=== PATIENT | female | born 1940 | race Caucasian/White ===

== ENCOUNTER → 2016-08-30 | Outpatient (CLI) | payer BC, MEDICARE ==
--- OUTSIDE RECORDS SUMMARY | 2016-08-30 13:16 | XMS REPORT | Continuity of Care Document ---
Author Author [facility] Organization [facility] Address Unknown Phone Unavailable Allergies Active Description Code Type Severity Reaction Onset Reported/Identified Relationship to Patient Clinical Status Yes NKANo Known Allergies NKA Miscellaneous Allergy Unknown N/ A 07/29/2005 Medications Problems Date Dx Coded Attending Type Code Diagnosis Diagnosed By 09/19/2014 Ot 715.96 09/19/2014 Ot V10.43 09/19/2014 Ot V58.69 09/19/2014 Ot V67.2 09/19/2014 Ot V88.01 08/24/2015 Ot 715.96 08/24/2015 Ot V10.43 08/24/2015 Ot V58.69 08/24/2015 Ot V67.2 08/24/2015 Ot V88.01 09/01/2015 Ot 230.6 09/01/2015 Ot V10.43 09/01/2015 Ot V45.77 09/01/2015 Ot V58.69 09/01/2015 Ot V67.2 09/01/2015 Ot 230.6 09/01/2015 Ot V10.43 09/01/2015 Ot V45.77 09/01/2015 Ot V58.69 09/01/2015 Ot V67.2 09/01/2015 Ot 553.20 09/01/2015 Ot V10.43 09/01/2015 Ot V45.77 09/01/2015 Ot V58.69 09/01/2015 Ot V67.2 09/01/2015 MARIANN POLK N Ot 715.96 09/01/2015 MARIANN POLK N Ot V10.43 09/01/2015 MARIANN POLK N Ot V58.69 09/01/2015 MARIANN POLK N Ot V67.2 09/01/2015 MARIANN POLK N Ot V88.01 09/01/2015 Ot 715.96 09/01/2015 Ot V10.43 09/01/2015 Ot V58.69 09/01/2015 Ot V67.2 09/01/2015 Ot V88.01 09/02/2015 MARIANN POLK N Ot Z08 09/02/2015 MARIANN POLK N Ot Z85.43 09/02/2015 MARIANN POLK N Ot Z90.710 09/02/2015 MARIANN POLK N Ot Z92.21 09/14/2015 FELICITASMARIANN LEE N Ot Z08 09/14/2015 FELICITASMARIANN LEE N Ot Z85.43 09/14/2015 FELIICTASMARIANN LEE N Ot Z90.710 09/14/2015 FELICITASMARIANN LEE N Ot Z92.21 10/01/2015 RHIANNA VALDES [employer] Ot Z08 10/01/2015 RHIANNA VALDES [employer] O[employer] Ot Z85.43 10/01/2015 RHIANNA VALDES [employer] Ot Z90.710 10/01/2015 RHIANNA VALDES [employer] Ot Z92.21 10/12/2015 RHIANNA VALDESP Ot Z08 ENCNTR FOR FOLLOW-UP EXAM AFTER TRTMT FO 10/12/2015 RHIANNA VALDES [employer] Ot Z85.43 PERSONAL HISTORY OF MALIGNANT NEOPLASM O 10/12/2015 RHIANNA VALDES [employer] Ot Z90.710 ACQUIRED ABSENCE OF BOTH CERVIX AND UTER 10/12/2015 RHIANNA VALDES [employer] Ot Z92.21 PERSONAL HISTORY OF ANTINEOPLASTIC CHEMO Procedures Results Encounters ACCT No. Visit Date/Time Discharge Status Pt. Type Provider Facility Loc./Unit Complaint [id number] 09/02/2013 09:20:00 2013 23:59:59 CLS Outpatient MARIANN POLK [facility] FS [id number] 08/30/2016 15:06:00 PEN Preadmit MARIANN POLK N [facility] FS [id number] 09/30/2015 12:38:00 ACT Outpatient RHIANNA VALDESP [facility] ONC [id number] 09/01/2015 09:40:00 ACT Outpatient MARIANN POLK N [facility] FS [id number] 08/26/2014 10:25:00 Document Registration [id number] 08/28/2012 12:44:00 Document Registration [id number] 08/30/2011 13:12:00 Document Registration [id number] 08/31/2010 10:39:00 Document Registration
== END ==
LOC: FS 13:11
PROVIDERS: ATTEND Internal Medicine Hematology & Oncology
DX: Z08 Encounter for follow-up examination after completed treatment for malignant neoplasm (principal); Z85.43 Personal history of malignant neoplasm of ovary; Z90.710 Acquired absence of both cervix and uterus; Z92.21 Personal history of antineoplastic chemotherapy
CPT/HCPCS: 99213

== ENCOUNTER → 2017-08-29 | Outpatient (CLI) | payer BC, MEDICARE ==
[2017-08-29 14:03] LABS: BASOPHILS % (AUTO) 0 % (0-10); EOSINOPHILS # (AUTO) 0.2 10^3/uL (0.0-0.3); EOSINOPHILS % (AUTO) 3 % (0-10); HEMATOCRIT 41 % (35-52); HEMOGLOBIN 13.7 G/DL (11.5-16.0); LYMPHOCYTES # (AUTO) 2.2 X 10^3 (1.0-4.0); LYMPHOCYTES % (AUTO) 29 % (12-44); MEAN CORPUSCULAR HEMOGLOBIN 31 PG (25-34); MEAN CORPUSCULAR HGB CONC 34 G/DL (32-36); MEAN CORPUSCULAR VOLUME 93 FL (80-99); MEAN PLATELET VOLUME 9.7 FL (7.4-10.4); MONOCYTES % (AUTO) 13 % (0-12); NEUTROPHILS # (AUTO) 4.1 X 10^3 (1.8-7.8); NEUTROPHILS % (AUTO) 54 % (42-75); PLATELET COUNT 259 10^3/uL (130-400); RED BLOOD COUNT 4.37 10^6/uL (4.35-5.85); RED CELL DISTRIBUTION WIDTH 13.2 % (10.0-14.5); WHITE BLOOD COUNT 7.6 10^3/uL (4.3-11.0)
[2017-08-29 14:29] LABS: ALANINE AMINOTRANSFERASE 26 U/L (0-55); ALBUMIN 4.1 GM/DL (3.2-4.5); ALKALINE PHOSPHATASE 78 U/L (40-136); BILIRUBIN,TOTAL 0.7 MG/DL (0.1-1.0); BUN/CREATININE RATIO 25; CALCIUM 9.2 MG/DL (8.5-10.1); CARBON DIOXIDE 30 MMOL/L (21-32); CHLORIDE 104 MMOL/L (98-107); CREATININE SERUM 0.67 MG/DL (0.60-1.30); GFR ESTIMATED > 60; GLUCOSE 102 MG/DL (70-105); SODIUM 140 MMOL/L (135-145); TOTAL PROTEIN 6.8 GM/DL (6.4-8.2)
== END ==
LOC: ONC 13:34
PROVIDERS: ATTEND Internal Medicine Hematology & Oncology
DX: Z08 Encounter for follow-up examination after completed treatment for malignant neoplasm (principal); Z85.43 Personal history of malignant neoplasm of ovary; Z85.828 Personal history of other malignant neoplasm of skin; Z90.710 Acquired absence of both cervix and uterus; Z92.21 Personal history of antineoplastic chemotherapy
CPT/HCPCS: 36415; 80053; 85025; 86304; 99213

== ENCOUNTER → 2020-10-14 | Outpatient (CLI) | payer BC, MEDICARE ==
[~2020-10-14] VITALS: Ht 165 cm; Wt 87.0 kg
[~2020-10-14] MED LIST: REGADENOSON 0.4 MG/5 ML SYR (LEXISCAN) IV ONE
[2020-10-14] MEDS: CATHETER FLUSH 10 ML SYR IV PRN ×2 (07:18→08:52)
[2020-10-14 08:51] VITALS: BP 113/84
--- NOTE | 2020-10-14 14:20 | Cardiology Stress Test Report ---
Stress Test Report Date of Procedure/Referring: Date of Procedure: Oct 14, 2020 PCP Juan Jose Mondragon MD Admitting Physician Ryan Stockton DO Indications: CP Baseline Heart Rate: 74 Baseline Blood Pressure: Blood Pressure Systolic: 113 Blood Pressure Diastolic: 84 Baseline Vitals Vital Signs Date Time Temp Pulse Resp B/P (MAP) Pulse Ox O2 Delivery O2 Flow Rate FiO2 10/14/20 08:51 82 16 113/84 (94) 98 Room Air Baseline EKG: Baseline EKG: Atrial fibrillation Summary After explaining the procedure to the patient, she signed a consent and then brought to the stress nuclear laboratory. Patient received 0.4 mg Lexiscan for stress test, ECG, heart rate and blood pressure were monitored continuously. Resting and stress dose of radio tracer were injected, imaging was acquired and reviewed in short axis, horizontal long axis and vertical long axis views. TID: 1.08 SSS: 0 SDS: 0 EF: 74 1. Patient tolerated Lexiscan well 2. Baseline atrial fibrillation persisted during test 3. Breast attenuation with decreased uptake involving the anterior wall with subtle reversibility, most probably secondary to breast attenuation, no significant ischemia was noted 4. Normal left ventricular size, EF 74%, gated images are unreliable due to underlying atrial fibrillation JUAN JOSE MONDRAGON MD Oct 14, 2020 14:20
== END ==
LOC: CARD 07:30
PROVIDERS: ATTEND Internal Medicine Cardiovascular Disease
DX: I08.0 Rheumatic disorders of both mitral and aortic valves (principal); I25.10 Atherosclerotic heart disease of native coronary artery without angina pectoris; I10 Essential (primary) hypertension
CPT/HCPCS: 78452; 93017; 93306

== ENCOUNTER → 2020-11-02 | Outpatient (CLI) | payer MEDICARE ==
[~2020-11-02] MED LIST changes: +AMIO200T6 PO; +APIX5TAB PO; +FURO40TA4 PO; +MTP25TSR PO; +MULT-178 PO; +POTA10TA36 PO; -REGADENOSON 0.4 MG/5 ML SYR (LEXISCAN) IV ONE; +SIMV10TA26 PO; +TIMO5DRO5 OU; +UBID100C17 PO; +VERA120T10 PO
== END ==
LOC: LAB FS 08:35
PROVIDERS: ATTEND Internal Medicine Cardiovascular Disease
DX: Z20.822 Contact with and (suspected) exposure to COVID-19 (principal)
CPT/HCPCS: 87635

== ENCOUNTER 2020-11-04 11:30 | Day surgery (SDC) | payer MEDICARE ==
[~2020-11-04] VITALS: Ht 165.1 cm; Wt 91.0 kg
[2020-11-04] VITALS (13 sets, daily range): BP systolic 96–116; BP diastolic 65–86
[2020-11-04 10:41] LABS: HEMATOCRIT 35 % (35-52); HEMOGLOBIN 11.3 g/dL (11.5-16.0); MEAN CORPUSCULAR HEMOGLOBIN 32 pg (25-34); MEAN CORPUSCULAR HGB CONC 32 g/dL (32-36); MEAN CORPUSCULAR VOLUME 99 fL (80-99); MEAN PLATELET VOLUME 9.5 fL (9.0-12.2); PLATELET COUNT 265 10^3/uL (130-400); WHITE BLOOD COUNT 6.7 10^3/uL (4.3-11.0)
--- NOTE | 2020-11-04 10:48 | Diagnostic Imaging Report ---
INDICATION: Arrhythmia. Portable chest at 10:41 a.m. Heart is mildly enlarged. Pulmonary vascularity is normal. Lungs are clear. There are no effusions or pneumothoraces. IMPRESSION: Cardiomegaly without evidence of pulmonary venous hypertension. Dictated by: Dictated on workstation # [id number]
[2020-11-04 11:02] LABS: INR 1.4 (0.8-1.4); PROTHROMBIN TIME PATIENT 17.1 SEC (12.2-14.7)
[2020-11-04 11:13] LABS: ALBUMIN 3.7 GM/DL (3.2-4.5); BILIRUBIN,TOTAL 0.6 MG/DL (0.1-1.0); CALCIUM 8.4 MG/DL (8.5-10.1); CREATININE SERUM 1.11 MG/DL (0.60-1.30); POTASSIUM 3.9 MMOL/L (3.6-5.0); TOTAL PROTEIN 6.3 GM/DL (6.4-8.2)
[~2020-11-04 11:30] MED LIST changes: -AMIO200T6 PO; +LIDOCAINE 2% VISCOUS 15 ML UDC ONE; +LIDOCAINE 2% VISCOUS 15 ML UDC PO ONE; +MIDAZOLAM 2 MG/2 ML (VERSED) VIAL ONE; +NS IV 1000 ML 1,000 ML IV SCH; +NS IV 1000 ML 1,000 ML ONE; +proPOfol 200 MG/20 ML (DIPRIVAN) VIAL IV ONE
--- NOTE | 2020-11-04 11:46 | Conscious Sedation/ASA ---
Conscious Sedation Pre-Proced Time 11:46 ASA Score 3 For ASA 3 and 4: Consider anesthesia and medical clearance. Also, for patients with a history of failed moderate sedation consider anesthesia. Airway Lungs Heart ASA score ASA 1: a normal healthy patient ASA 2: a patient with a mild systemic disease (mid diabetes, controlled hypertension, obesity x ASA 3: a patient with a severe systemic disease that limits activity (angina, COPD, prior Myocardial infarction) ASA 4: a patient with an incapacitating disease that is a constant threat to life (CHF, renal failure) ASA 5: a moribund patient not expected to survive 24 hrs. (ruptured aneurysm) ASA 6: a declared brain- patient whose organs are being harvested. For emergent operations, add the letter E after the classification Mallampati Classification Grade 3 Sedation Plan Analgesia, Amnesia, Plan communicated to team members, Discussed options with patient/fam, Discussed risks with patient/fam The patient is an appropriate candidate to undergo the planned procedure, sedation, and anesthesia. The patient immediately re-assessed prior to indication. JUAN JOSE GIBSON MD November 04, 2020 11:46 am
--- NOTE | 2020-11-04 11:47 | Cardioversion ---
Cardioversion PROCEDURE PHYSICIAN: Juan Jose Mondragon DATE OF PROCEDURE: 11/04/20 DIRECT EXTERNAL ELECTRICAL CARDIOVERSION: Indications: Atrial Fibrillation with rapid ventricular rate Preoperative diagnoses: Atrial Fibrillation with rapid ventricular rate Postoperative diagnosis: Sinus rhythm, Successful Electrical Cardioversion Anesthesia: By Anesthesia services Complications: None Specimen: None Contrast: 0 Flouroscopy: none Procedure Details: The patient was brought the sleep lab technologist after informed consent was taken, all the risks and complications were explained including the risk of stroke. Electrical cardioversion was carried out with anesthesia support with propofol. 200 joules of synchronized shock was delivered through external patches which promptly restored sinus rhythm. The patient tolerated the procedure well. Conclusions: Successful electrical cardioversion with no complication Final Diagnosis: Paroxysmal atrial fibrillation Palpitation Hypertension Hyperlipidemia JUAN JOSE MONDRAGON MD November 04, 2020 11:47 am
[2020-11-04] MEDS ORDERED: AMIO200T6 PO (11:54)
--- NOTE | 2020-11-04 11:55 | Discharge Inst-Cardiology ---
Discharge Inst-Cardiac Problems Reviewed?: Yes Discharge Medications New Medications: Amiodarone HCl (Amiodarone HCl) 200 Mg Tablet 200 MG PO UD, #100 TAB Take 2 tablet twice daily for 2 weeks then Take 1 tablet twice daily Continued Medications: Apixaban (Eliquis) 5 Mg Tablet 5 MG PO BID, TAB Furosemide (Furosemide) 40 Mg Tablet 40 MG PO 0700,1300, TAB Metoprolol Succinate (Metoprolol Succinate) 25 Mg Tab.er.24h 25 MG PO DAILY, TAB Multivitamin (Multiple Vitamins) 1 Each Tablet 1 EACH PO DAILY, TAB Potassium Chloride (Potassium Chloride) 10 Meq Tab.er.prt 10 MEQ PO DAILY Simvastatin (Simvastatin) 10 Mg Tablet 10 MG PO DAILY, TAB Timolol Maleate (Timolol Maleate 0.5%) 5 Ml Drops 1 DROP OU BID, DROPS Ubidecarenone (Coq-10) 100 Mg Capsule 200 MG PO DAILY, CAP Verapamil HCl (Verapamil ER) 120 Mg Tablet.er 120 MG PO DAILY, TAB Patient Instructions Patient Instructions: Appointment with Dr. Mondragon's office in 2 to 4 weeks Activity & Diet Discharge Diet: No Restrictions JUAN JOSE MONDRAGON MD November 04, 2020 11:55 am
[2020-11-04] MEDS ORDERED: AMIODARONE INJECTION 450 MG in D5W IV SOLUTION (EXCEL) 250 ML IV SCH (12:00)
[2020-11-04] MEDS ORDERED: AMIODARONE FOR BOLUS 150 MG in D5W 100 ML IVPB 100 ML IV ONE ×4 (12:00)
[2020-11-04] MEDS ORDERED: FUROSEMIDE 40 MG (LASIX) TAB PO SCH (13:00)
--- NOTE | 2020-11-04 14:21 | Anesthesia-General Post-Op ---
MAC Patient Condition Mental Status/LOC: Same as Preop Cardiovascular: Satisfactory Nausea/Vomiting: Absent Respiratory: Satisfactory Pain: Controlled Complications: Absent Post Op Complications Complications None Follow Up Care/Instructions Patient Instructions None needed. Anesthesiology Discharge Order Discharge Order Patient is doing well, no complaints, stable vital signs, no apparent adverse anesthesia problems. No complications reported per nursing. KAMILLE BENJAMIN CRNA November 04, 2020 14:21
[2020-11-04] MEDS ORDERED: APIXABAN 5 MG (ELIQUIS) TABLET PO SCH (21:00)
[2020-11-04] MEDS ORDERED: TIMOLOL MALEATE 0.5% 5 ML (TIMOPTIC) BTL OU SCH (21:00)
[2020-11-05] MEDS ORDERED: NON-FORMULARY MEDICATION 1 EA EA (Potassium Chloride 10 MEQ) PO SCH (09:00)
[2020-11-05] MEDS ORDERED: UBIDECARENONE 200 MG PO SCH (09:00)
[2020-11-05] MEDS ORDERED: NON-FORMULARY MEDICATION 1 EA EA (Multivitamin (Multiple Vitamins) 1 EACH) PO SCH (09:00)
[2020-11-05] MEDS ORDERED: SIMvastatin 10 MG (ZOCOR) TAB PO SCH (09:00)
== END 2020-11-04 14:20 ==
LOC: CATH 14:20
PROVIDERS: ATTEND Internal Medicine Cardiovascular Disease
DX: I48.91 Unspecified atrial fibrillation (principal); I48.19 Other persistent atrial fibrillation; I10 Essential (primary) hypertension; I48.0 Paroxysmal atrial fibrillation; E78.5 Hyperlipidemia, unspecified; J45.909 Unspecified asthma, uncomplicated; Z79.899 Other long term (current) drug therapy; Z79.01 Long term (current) use of anticoagulants
CPT/HCPCS: 36415; 71045; 80053; 80061; 85027; 85610; 85730; 87081; 92960; 93005; 93312

== ENCOUNTER → 2021-05-04 | Outpatient (CLI) | payer MEDICARE ==
[~2021-05-04] MED LIST changes: +AMIO200T6 PO; -LIDOCAINE 2% VISCOUS 15 ML UDC ONE; -LIDOCAINE 2% VISCOUS 15 ML UDC PO ONE; -MIDAZOLAM 2 MG/2 ML (VERSED) VIAL ONE; -NS IV 1000 ML 1,000 ML IV SCH; -NS IV 1000 ML 1,000 ML ONE; -VERA120T10 PO; +VERA120T74 PO; -proPOfol 200 MG/20 ML (DIPRIVAN) VIAL IV ONE
--- NOTE | 2021-05-04 15:11 | Diagnostic Imaging Report ---
INDICATION: Postmenopausal screening COMPARISON: Baseline FINDINGS: AP Spine L1-L4: [BMD (g/cm2): 0.919] [T-Score: -2.3] [Z-Score: -1.2] [BMD Previous: NA] [BMD % Change: NA] LT Hip Neck: [BMD (g/cm2): 0.704] [T-Score: -2.4] [Z-Score: -0.6] LT Hip Total: [BMD (g/cm2):0.747] [T-Score:-2.1] [Z-Score: -0.5] [BMD Previous: NA] [BMD % Change: NA] RT Hip Neck: [BMD (g/cm2):0.704] [T-Score:-2.4] [Z-Score:-0.6] RT Hip Total: [BMD (g/cm2):0.776] [T-score:-1.8] [Z-Score:-0.3] [BMD Previous:NA] [BMD % Change:NA] *Indicates significant change from prior examination based on 95% confidence level. World Health Organization criteria for BMD interpretation classify patients as Normal (T-score at or above -1.0), Osteopenic (T-score between -1.0 and -2.5) or Osteoporotic (T-score at or below -2.5). LIMITATIONS AND MODIFICATION: None. FRACTURE RISK (FRAX SCORE): The ten year probability of (%): Major Osteoporotic Fracture: [17.2] Hip Fracture: [5.8] IMPRESSION: 1. Osteopenia (Low bone mass). 2. Baseline examination. 3. See below National Osteoporosis Foundation guidelines on when to potentially initiate pharmacologic therapy. Based on the National Osteoporosis Foundation Guidelines, pharmacologic treatment should be initiated in any of the following, unless clinical conditions suggest otherwise: * Any patient with prior fragility fracture of the hip or vertebrae. A spine fracture indicates 5X risk for subsequent spine fracture and 2X risk for subsequent hip fracture. * Osteoporosis (T-score <-2.5). * Postmenopausal women and men age 50 and older with low bone mass/osteopenia (T-score between -1.0 and -2.5) by DXA and 10-year major osteoporotic fracture greater than 20% or a 10-year probability of hip fracture greater than 3%. These fracture risks are supplied above in the FRAX score, if applicable. * Clinician judgement and/or patient preferences may indicate treatment for people with 10-year fracture probabilities above or below these levels. Dictated by: Dictated on workstation # [id number]
== END ==
LOC: RAD 12:14
PROVIDERS: ATTEND Hospitalist
DX: Z13.820 Encounter for screening for osteoporosis (principal); C50.812 Malignant neoplasm of overlapping sites of left female breast; M85.89 Other specified disorders of bone density and structure, multiple sites; Z79.811 Long term (current) use of aromatase inhibitors; Z78.0 Asymptomatic menopausal state
CPT/HCPCS: 77080

== ENCOUNTER 2021-05-19 16:06 | Observation (INO) | payer MEDICARE, OTHER ==
[~2021-05-19] VITALS: Ht 160 cm; Wt 89.7 kg
[~2021-05-19 16:06] MED LIST changes: -AMIO200T6 PO; +AMIO200T65 PO; -POTA10TA36 PO; +POTA10TA37 PO
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
[2021-05-19 16:39] LABS: BASOPHILS % (AUTO) 0 % (0-10); EOSINOPHILS % (AUTO) 2 % (0-10); HEMATOCRIT 41 % (35-52); HEMOGLOBIN 13.4 g/dL (11.5-16.0); LYMPHOCYTES % (AUTO) 21 % (12-44); MEAN CORPUSCULAR HEMOGLOBIN 31 pg (25-34); MEAN CORPUSCULAR HGB CONC 33 g/dL (32-36); MEAN CORPUSCULAR VOLUME 94 fL (80-99); MONOCYTES % (AUTO) 10 % (0-12); NEUTROPHILS % (AUTO) 67 % (42-75); PLATELET COUNT 317 10^3/uL (130-400); WHITE BLOOD COUNT 7.8 10^3/uL (4.3-11.0)
[2021-05-19 16:40] LABS: EOSINOPHILS # (AUTO) 0.1 10^3/uL (0.0-0.3); LYMPHOCYTES # (AUTO) 1.6 X 10^3 (1.0-4.0); MONOCYTES # (AUTO) 0.8 X 10^3 (0.0-1.0); NEUTROPHILS # (AUTO) 5.2 X 10^3 (1.8-7.8)
[2021-05-19 17:10] LABS: PROTHROMBIN TIME PATIENT > 45.0 SEC (12.2-14.7)
[2021-05-19 17:11] LABS: CALCIUM 8.6 MG/DL (8.5-10.1); CREATININE SERUM 1.05 MG/DL (0.60-1.30); POTASSIUM 3.9 MMOL/L (3.6-5.0)
[2021-05-19] MEDS ORDERED: VITAMIN K 1 MG/ML ORAL SOLN 1 ML SYRINGE PO ONE (17:30)
[2021-05-19 19:56] VITALS: BP 122/83
[2021-05-19] MEDS: AMIODARONE 200 MG (CORDARONE) TAB PO SCH (21:57)
[2021-05-19 22:39] VITALS: BP 115/92
[2021-05-19] MEDS ORDERED: RT-ALBUTEROL SULF 2.5 MG/3 ML PRE-MIX VIAL INH PRN (23:00)
[2021-05-20] VITALS: BP 135/85
[2021-05-20] MEDS ORDERED: ACETAMINOPHEN 325 MG TABLET PO PRN (04:45)
[2021-05-20] MEDS ORDERED: PATIENT MAY USE OWN MEDS, ALL PO SCH (04:45)
[2021-05-20] MEDS ORDERED: MELATONIN 3 MG TABLET PO PRN (04:45)
[2021-05-20] MEDS ORDERED: ONDANSETRON 4 MG/2 ML (SDV) Z0FRAN IV PRN (04:45)
[2021-05-20] MEDS ORDERED: ONDANSETRON 4 MG (ZOFRAN) ORAL DISSOLVE TAB PO PRN (04:45)
[2021-05-20] MEDS ORDERED: polyethylene glycoL POWDER 17 GM (MIRALAX) PACK PO PRN (04:45)
[2021-05-20] MEDS ORDERED: ANTACID SUSP 30 ML UDC (MYLANTA) PO PRN (04:45)
[2021-05-20 04:53] VITALS: BP 128/80
[2021-05-20] MEDS: FUROSEMIDE 40 MG (LASIX) TAB PO SCH ×2 (06:56→12:48)
[2021-05-20 07:01] LABS: PROTHROMBIN TIME PATIENT 92.7 SEC (12.2-14.7)
[2021-05-20 07:02] LABS: INR 12.1 (0.8-1.4)
[2021-05-20 07:30] VITALS: BP 141/82
[2021-05-20] MEDS: AMIODARONE 200 MG (CORDARONE) TAB PO SCH ×2 (08:42→20:13)
[2021-05-20] MEDS: KCL 10 MEQ TAB (MICRO K) PO SCH (08:42)
[2021-05-20] MEDS: LOSARTAN 50 MG (COZAAR) TAB PO SCH (08:42)
[2021-05-20] MEDS: VERAPAMIL PM 100 MG (VERELAN PM) CAP.SR.24H PO SCH (08:42)
[2021-05-20] MEDS: TIMOLOL MALEATE 0.5% 5 ML (TIMOPTIC) BTL OU SCH ×2 (08:43→20:13)
[2021-05-20] MEDS ORDERED: AVALIDE PO SCH (09:00)
[2021-05-20] MEDS ORDERED: NON-FORMULARY MEDICATION 1 EA EA PO SCH (09:00)
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
[2021-05-20 12:04] VITALS: BP 98/65
[2021-05-20] MEDS ORDERED: ANAS1TAB50 PO ×2 (14:08)
[2021-05-20] MEDS ORDERED: VERA120C4 PO ×2 (14:08)
[2021-05-20] MEDS ORDERED: SIMV40TA25 PO ×2 (14:08)
[2021-05-20] MEDS ORDERED: AMIO200T50 PO ×2 (14:08)
[2021-05-20] MEDS ORDERED: WRF2.5T PO ×2 (14:08)
[2021-05-20 15:35] VITALS: BP 99/73
[2021-05-20 20:08] VITALS: BP 102/65
[2021-05-20] MEDS ORDERED: SIMvastatin 10 MG (ZOCOR) TAB PO SCH (21:00)
[2021-05-21] VITALS: BP 120/82
[2021-05-21 05:00] VITALS: BP 116/76
[2021-05-21 06:38] LABS: BASOPHILS % (AUTO) 0 % (0-10); EOSINOPHILS # (AUTO) 0.2 10^3/uL (0.0-0.3); EOSINOPHILS % (AUTO) 2 % (0-10); HEMATOCRIT 40 % (35-52); LYMPHOCYTES # (AUTO) 1.2 10^3/uL (1.0-4.0); LYMPHOCYTES % (AUTO) 18 % (12-44); MEAN CORPUSCULAR HEMOGLOBIN 31 pg (25-34); MEAN CORPUSCULAR HGB CONC 32 g/dL (32-36); MEAN CORPUSCULAR VOLUME 96 fL (80-99); MEAN PLATELET VOLUME 9.9 fL (9.0-12.2); MONOCYTES # (AUTO) 0.7 10^3/uL (0.0-1.0); MONOCYTES % (AUTO) 11 % (0-12); NEUTROPHILS # (AUTO) 4.6 10^3/uL (1.8-7.8); NEUTROPHILS % (AUTO) 68 % (42-75); PLATELET COUNT 261 10^3/uL (130-400); WHITE BLOOD COUNT 6.8 10^3/uL (4.3-11.0)
[2021-05-21] MEDS: FUROSEMIDE 40 MG (LASIX) TAB PO SCH (06:48)
[2021-05-21 07:11] LABS: INR 6.7 (0.8-1.4); PROTHROMBIN TIME PATIENT 58.7 SEC (12.2-14.7)
[2021-05-21 08:00] VITALS: BP 133/88
[2021-05-21] MEDS: AMIODARONE 200 MG (CORDARONE) TAB PO SCH (08:37)
[2021-05-21] MEDS: VERAPAMIL PM 100 MG (VERELAN PM) CAP.SR.24H PO SCH (08:37)
[2021-05-21] MEDS: KCL 10 MEQ TAB (MICRO K) PO SCH (08:37)
[2021-05-21] MEDS: LOSARTAN 50 MG (COZAAR) TAB PO SCH (08:37)
[2021-05-21] MEDS: TIMOLOL MALEATE 0.5% 5 ML (TIMOPTIC) BTL OU SCH (09:00)
[2021-05-21] MEDS ORDERED: WRF1T PO ×2 (10:48)
[2021-05-21 12:00] VITALS: BP 131/82
[2021-05-21 12:39] VITALS: BP 133/88
--- NOTE | 2021-05-21 18:44 | Discharge Summary ---
Discharge Summary Hospital Course Was the Problem List Reviewed?: Yes Problems/Dx: (1) Supratherapeutic INR Status: Acute (2) Anticoagulated on Coumadin Status: Chronic (3) PAF (paroxysmal atrial fibrillation) Status: Chronic (4) HTN (hypertension) Status: Chronic (5) HLD (hyperlipidemia) Status: Chronic (6) Obesity Status: Chronic Hospital Course Date of Admission: May 19, 2021 at 19:43 Admission Diagnosis : Supratherapeutic INR Family Physician/Provider: Ryan Stockton DO Date of Discharge: 05/21/21 Discharge Diagnosis: Supratherapeutic INR Hospital Course: Mela Villavicencio is an 80 year old female with AFib on coumadin who was admitted with supratherapeutic INR. She was started on coumadin 5 mg daily a few weeks ago. Her INR was found to be >12. She was given Vitamin K 2.5 mg in ER. Her INR trended down to 6. She was instructed to restart her coumadin tomorrow evening at 1 mg daily. She should have her INR rechecked on Monday morning at her doctor's office. She was discharged home in stable condition. Labs and Pending Lab Test: Laboratory Tests 05/21/21 05:59: White Blood Count 6.8, Red Blood Count 4.19, Hemoglobin 13.0, Hematocrit 40, Mean Corpuscular Volume 96, Mean Corpuscular Hemoglobin 31, Mean Corpuscular Hemoglobin Concent 32, Red Cell Distribution Width 12.7, Platelet Count 261, Mean Platelet Volume 9.9, Immature Granulocyte % (Auto) 0, Neutrophils (%) (Auto) 68, Lymphocytes (%) (Auto) 18, Monocytes (%) (Auto) 11, Eosinophils (%) (Auto) 2, Basophils (%) (Auto) 0, Neutrophils # (Auto) 4.6, Lymphocytes # (Auto) 1.2, Monocytes # (Auto) 0.7, Eosinophils # (Auto) 0.2, Basophils # (Auto) 0.0, Immature Granulocyte # (Auto) 0.0, Prothrombin Time 58.7*H, INR Comment 6.7*H Home Meds Active Warfarin Sodium 1 Mg Tablet 1 Mg PO DAILY 30 Days Reported Pacerone (Amiodarone HCl) 200 Mg Tablet 200 Mg PO BID Arimidex (Anastrozole) 1 Mg Tablet 1 Mg PO 1500 Verapamil Sr (Verapamil HCl) 120 Mg Cap24h.pel 120 Mg PO 1500 Simvastatin 40 Mg Tablet 40 Mg PO 1500 Coq-10 (Ubidecarenone) 100 Mg Capsule 200 Mg PO DAILY Timolol Maleate 0.5% (Timolol Maleate) 5 Ml Drops 1 Drop OU BID Potassium Chloride 10 Meq Tab.er.prt 10 Meq PO 1500 Metoprolol Succinate 25 Mg Tab.er.24h 25 Mg PO 1500 Furosemide 40 Mg Tablet 40 Mg PO 0700,1300 Multiple Vitamins (Multivitamin) 1 Each Tablet 1 Each PO DAILY Assessment/Pt Instructions Take medications as prescribed. Follow up with your PCP. Return with worsening symptoms. Discharge Planning: <30 minutes discharge planning Discharge Instructions Discharge Diet: Coumadin Patient Diet Activity as Tolerated: Yes Discharge Physical Examination Vital Signs Vital Signs Date Time Temp Pulse Resp B/P (MAP) Pulse Ox O2 Delivery O2 Flow Rate FiO2 05/21/21 12:39 36.2 85 20 133/88 94 Room Air 05/19/21 22:39 21 General Appearance: No Apparent Distress, Obese Respiratory: Lungs Clear, Normal Breath Sounds, No Respiratory Distress Cardiovascular: Regular Rate, Rhythm, No Edema, No Murmur Gastrointestinal: Normal Bowel Sounds, Non Tender, Soft Extremity: Normal Inspection, Non Tender, No Pedal Edema Skin: Normal Color, Warm/Dry Neurologic/Psychiatric: Alert, Oriented x3, No Motor/Sensory Deficits, Normal Mood/Affect Allergies: Coded Allergies: NKANo Known Allergies (Verified Allergy, Unknown, 07/29/05) Copy Copies To 1: RYAN STOCKTON DO Discharge Summary Date of Admission May 19, 2021 at 19:43 Date of Discharge May 21, 2021 at 12:00 Discharge Date: May 21, 2021 Discharge Time: 12:00 Admission Diagnosis Supratherapeutic INR Discharge Diagnosis Supratherapeutic INR (1) Supratherapeutic INR Status: Acute (2) Anticoagulated on Coumadin Status: Chronic (3) PAF (paroxysmal atrial fibrillation) Status: Chronic (4) HTN (hypertension) Status: Chronic (5) HLD (hyperlipidemia) Status: Chronic (6) Obesity Status: Chronic BUNNY SMITH MD May 21, 2021 18:44
== END 2021-05-21 12:00 | disposition home or self-care (01) ==
LOC: EDUNIT# 16:06 → ER FS 16:08 → 4TH 19:43
PROVIDERS: ADMIT Internal Medicine; ATTEND Internal Medicine
DX: R79.1 Abnormal coagulation profile (principal); I48.0 Paroxysmal atrial fibrillation; I10 Essential (primary) hypertension; E78.5 Hyperlipidemia, unspecified; E66.9 Obesity, unspecified; M19.90 Unspecified osteoarthritis, unspecified site; J45.909 Unspecified asthma, uncomplicated; Z90.710 Acquired absence of both cervix and uterus; Z85.3 Personal history of malignant neoplasm of breast; Z79.01 Long term (current) use of anticoagulants
CPT/HCPCS: 36415; 80048; 83036; 85025; 85610; 94760; G0378

== ENCOUNTER → 2021-05-25 | Outpatient (REF) | payer MEDICARE, OTHER ==
[~2021-05-25] MED LIST changes: +AMIO200T50 PO; +ANAS1TAB50 PO; +SIMV40TA25 PO; +VERA120C4 PO; +WRF1T PO; +WRF2.5T PO
[2021-05-25 18:18] LABS: INR 9.1 (0.8-1.4); PROTHROMBIN TIME PATIENT 74.1 SEC (12.2-14.7)
== END ==
LOC: FSOP 17:39
PROVIDERS: ATTEND Emergency Medicine
DX: Z01.89 Encounter for other specified special examinations (principal)
CPT/HCPCS: 36415; 85610

== ENCOUNTER → 2021-05-28 | Outpatient (CLI) | payer MEDICARE ==
[2021-05-28 11:13] LABS: PROTHROMBIN TIME PATIENT 72.3 SEC (12.2-14.7)
[2021-05-28 11:15] LABS: INR 8.8 (0.8-1.4)
== END ==
LOC: LAB FS 10:13
PROVIDERS: ATTEND Nurse Practitioner Family
DX: I48.91 Unspecified atrial fibrillation (principal); R79.1 Abnormal coagulation profile
CPT/HCPCS: 36415; 85610

== ENCOUNTER → 2021-07-16 | Outpatient (CLI) | payer MEDICARE ==
--- NOTE | 2021-07-16 11:58 | Diagnostic Imaging Report ---
INDICATION: Osteoarthritis. TIME OF EXAM: 10:14 AM 3 views of the right knee were obtained. There are severe medial compartmental degenerative changes with complete loss of the joint space. There is marginal osteophyte formation. Uzyi-dl-xjavffjg patellofemoral degenerative changes noted. No fracture, dislocation or effusion is seen. IMPRESSION: Degenerative changes, most marked involving the medial compartment. No acute bony abnormality is detected. Dictated by: Dictated on workstation # [id number]
== END ==
LOC: RAD FS 10:06
PROVIDERS: ATTEND Nurse Practitioner
DX: M17.11 Unilateral primary osteoarthritis, right knee (principal)
CPT/HCPCS: 73562

== ENCOUNTER 2022-01-25 17:17 | Emergency (ER) | payer MEDICARE ==
[~2022-01-25] VITALS: Ht 162.6 cm; Wt 90.5 kg
--- NOTE | 2022-01-25 17:30 | ED Lower Extremity ---
General Stated Complaint: R KNEE REDNESS/SWELLING Source: patient Exam Limitations: no limitations History of Present Illness Date Seen by Provider: Jan 25, 2022 Time Seen by Provider: 17:19 Initial Comments 81-year-old female with past medical history of A. fib on warfarin and recent right knee replacement on December [address] Barroso with coming in due to a painful right knee that is swollen and red. Started getting worse yesterday. Prior to that the swelling had gone down and things were going well. Given working with therapy and had been walking on it regularly. Today the pain is so much that she is unable to really walk on it. She called the orthopedic doctor's office and they said that he would want to see her, so they came to the ER because they did not want to have to drive that far. Denies any fever that she knows of, chest pain, shortness of breath, abdominal pain, nausea, vomiting, diarrhea, weakness, numbness, or any other concerns. Allergies and Home Medications Allergies Coded Allergies: Selvin Known Allergies (Verified Allergy, Unknown, 07/29/05) Patient Home Medication List Home Medication List Reviewed: Yes Amiodarone HCl (Pacerone) 200 Mg Tablet, 200 MG PO BID, (Reported) Entered as Reported by: RONNIE ARDON on 05/20/21 1408 Anastrozole (Arimidex) 1 Mg Tablet, 1 MG PO 1500, (Reported) Entered as Reported by: RONNIE ARDON on 05/20/21 1408 Furosemide (Furosemide) 40 Mg Tablet, 40 MG PO 0700,1300, (Reported) Entered as Reported by: RONNIE ARDON on 11/04/20 112 Metoprolol Succinate (Metoprolol Succinate) 25 Mg Tab.er.24h, 25 MG PO 1500, (Reported) Entered as Reported by: RONNIE ARDON on 11/04/20 1122 Multivitamin (Multiple Vitamins) 1 Each Tablet, 1 EACH PO DAILY, (Reported) Entered as Reported by: RONNIE ARDON on 11/04/20 1122 Potassium Chloride (Potassium Chloride) 10 Meq Tab.er.prt, 10 MEQ PO 1500, (Reported) Entered as Reported by: RONNIE ARDON on 11/04/20 1122 Simvastatin (Simvastatin) 40 Mg Tablet, 40 MG PO 1500, (Reported) Entered as Reported by: RONNIE ARDON on 05/20/21 1408 Timolol Maleate (Timolol Maleate 0.5%) 5 Ml Drops, 1 DROP OU BID, (Reported) Entered as Reported by: RONNIE ARDON on 11/04/20 1122 Ubidecarenone (Coq-10) 100 Mg Capsule, 200 MG PO DAILY, (Reported) Entered as Reported by: RONNIE ARDON on 11/04/20 112 Verapamil HCl (Verapamil Sr) 120 Mg Cap24h.pel, 120 MG PO 1500, (Reported) Entered as Reported by: RONNIE ARDON on 05/20/21 1408 Warfarin Sodium (Warfarin Sodium) 1 Mg Tablet, 1 MG PO DAILY Prescribed by: BUNNY SMITH on 05/21/21 1048 Review of Systems Constitutional: No fever Respiratory: No cough Cardiovascular: No chest pain Gastrointestinal: No abdominal pain Genitourinary: no symptoms reported Musculoskeletal: see HPI Skin: no symptoms reported Psychiatric/Neurological: No Symptoms Reported All Other Systems Reviewed Negative Unless Noted: Yes Past Bxlsitz-Dacrvb-Wvfuop Hx Patient Social History Tobacco Use?: No Past Medical History Surgery/Hospitalization HX: asthma, atrial fibrillation, breast cancer Surgeries: Yes Hysterectomy, Orthopedic (right knee replacement) Respiratory: Yes Asthma Cardiac: Yes Atrial Fibrillation, High Cholesterol, Hypertension Neurological: No Genitourinary: Yes ("BLADDER FALLEN") Gastrointestinal: No Cancer: Yes Uterine What Type of Treatment Did You: Surgical Intervention Family Medical History No Pertinent Family Hx Physical Exam Vital Signs Vital Signs - First Documented 01/25/22 17:20 Temp 36.6 Pulse 106 Resp 17 B/P (MAP) 102/60 (74) O2 Delivery Room Air Capillary Refill : Height, Weight, BMI Height: '" Weight: lbs. oz. kg; 35.03 BMI Method: General Appearance: WD/WN, no apparent distress HEENT: PERRL/EOMI, normal ENT inspection, pharynx normal Neck: non-tender, full range of motion, supple, normal inspection Cardiovascular: regular rate, rhythm, no edema, no murmur Respiratory: chest non-tender, lungs clear, normal breath sounds, no res piratory distress, no accessory muscle use Gastrointestinal: normal bowel sounds, non tender, soft; No distended, No guarding, No rebound Back: normal inspection Hips: bilateral hip non-tender, bilateral hip normal inspection, bilateral hip normal range of motion, bilateral hip no evidence of injury Legs: bilateral leg non-tender, bilateral leg normal inspection, bilateral leg normal range of motion, bilateral leg no evidence of injury Knees: left knee non-tender, left knee normal inspection, left knee normal range of motion, left knee no evidence of injury; right knee joint effusion, right knee pain, right knee swelling, right knee other (redness and warmth) Neurologic/Tendon: normal sensation, normal motor functions Neurologic/Psychiatric: no motor/sensory deficits, alert, normal mood/affect Skin: normal color, warm/dry Lymphatic: no adenopathy Progress/Results/Core Measures Results/Orders Lab Results Laboratory Tests Test 01/25/22 17:30 01/25/22 18:28 Range/Units White Blood Count 10.1 4.3-11.0 10^3/uL Red Blood Count 3.48 L 3.80-5.11 10^6/uL Hemoglobin 9.5 L 11.5-16.0 g/dL Hematocrit 31 L 35-52 % Mean Corpuscular Volume 88 80-99 fL Mean Corpuscular Hemoglobin 27 25-34 pg Mean Corpuscular Hemoglobin Concent 31 L 32-36 g/dL Red Cell Distribution Width 16.4 H 10.0-14.5 % Platelet Count 335 130-400 10^3/uL Mean Platelet Volume 9.2 9.0-12.2 fL Immature Granulocyte % (Auto) 0 % Neutrophils (%) (Auto) 78 H 42-75 % Lymphocytes (%) (Auto) 10 L 12-44 % Monocytes (%) (Auto) 10 0-12 % Eosinophils (%) (Auto) 1 0-10 % Basophils (%) (Auto) 0 0-10 % Neutrophils # (Auto) 7.9 H 1.8-7.8 10^3/uL Lymphocytes # (Auto) 1.0 1.0-4.0 10^3/uL Monocytes # (Auto) 1.0 0.0-1.0 10^3/uL Eosinophils # (Auto) 0.1 0.0-0.3 10^3/uL Basophils # (Auto) 0.0 0.0-0.1 10^3/uL Immature Granulocyte # (Auto) 0.0 0.0-0.1 10^3/uL Erythrocyte Sedimentation Rate 52 H 0-30 MM/HR Prothrombin Time 19.1 H 12.2-14.7 SEC INR Comment 1.6 H 0.8-1.4 Activated Partial Thromboplast Time 31 24-35 SEC Sodium Level 143 135-145 MMOL/L Potassium Level 3.8 3.6-5.0 MMOL/L Chloride Level 102 98-107 MMOL/L Carbon Dioxide Level 30 21-32 MMOL/L Anion Gap 11 5-14 MMOL/L Blood Urea Nitrogen 15 7-18 MG/DL Creatinine 1.10 0.60-1.30 MG/DL Estimat Glomerular Filtration Rate 50 BUN/Creatinine Ratio 14 Glucose Level 136 H 70-105 MG/DL Calcium Level 8.8 8.5-10.1 MG/DL Corrected Calcium 9.0 8.5-10.1 MG/DL Total Bilirubin 0.5 0.1-1.0 MG/DL Aspartate Amino Transf (AST/SGOT) 18 5-34 U/L Alanine Aminotransferase (ALT/SGPT) 9 0-55 U/L Alkaline Phosphatase 159 H 40-136 U/L C-Reactive Protein 2.44 H <0.50 MG/DL Total Protein 6.5 6.4-8.2 GM/DL Albumin 3.7 3.2-4.5 GM/DL Lactic Acid Level 1.60 0.50-2.00 MMOL/L My Orders Orders - FIDELINA MARTÍNEZ MD Cbc With Automated Diff (01/25/22 17:26) Comprehensive Metabolic Panel (01/25/22 17:26) Erythrocyte Sedimentation Rate (01/25/22 17:26) Protime With Inr (01/25/22 17:26) Partial Thromboplastin Time (01/25/22 17:26) Crp Fs (01/25/22 17:26) Knee 3 View Right (01/25/22 17:26) Oxycodone Immediate Rel Tablet (Oxyir Ta (01/25/22 17:45) Acetaminophen Tablet (Tylenol Tablet) (01/25/22 17:45) Blood Culture (01/25/22 18:09) Lactic Acid Analyzer (01/25/22 18:09) Cefepime Injection (Maxipime Injection) (01/25/22 18:15) Vancomycin Injection (Vancomycin Injecti (01/25/22 18:15) Vancomycin Injection (Vancomycin Injecti (01/25/22 19:15) Ns Iv 500 Ml (Sodium Chloride 0.9%) (01/25/22 18:09) Medications Given in ED Current Medications Medications Dose Ordered Sig/Mery Route Start Time Stop Time Status Last Admin Dose Admin Acetaminophen 1,000 mg ONCE ONCE PO 01/25/22 17:45 01/25/22 17:46 DC 01/25/22 17:42 1,000 MG Cefepime HCl 1000 mg/Sodium Chloride 50 ml @ 100 mls/hr ONCE ONCE IV 01/25/22 18:15 01/25/22 18:44 DC 01/25/22 18:31 100 MLS/HR Oxycodone HCl 5 mg ONCE ONCE PO 01/25/22 17:45 01/25/22 17:46 DC 01/25/22 17:42 5 MG Vancomycin HCl 750 mg/Sodium Chloride 250 ml @ 250 mls/hr ONCE ONCE IV 01/25/22 19:15 01/25/22 20:14 01/25/22 19:36 250 MLS/HR Vancomycin HCl 1000 mg/Sodium Chloride 250 ml @ 250 mls/hr ONCE ONCE IV 01/25/22 18:15 01/25/22 19:14 DC 01/25/22 18:32 250 MLS/HR Vital Signs/I&O 01/25/22 17:20 Temp 36.6 Pulse 106 Resp 17 B/P (MAP) 102/60 (74) O2 Delivery Room Air Progress Progress Note : Progress Note 81-year-old female with above history coming in due to painful right knee that is swollen and red over 1 month postop from a knee replacement. ABCs were intact and vitals were stable on presentation. Blood pressures did trend down to the 90s systolic, but on discussion with the patient she says this is actually her baseline. An IV was placed and basic labs were obtained including inflammatory markers, cultures, lactic acid. White blood cell count 10.1, CRP 2.5, ESR around 50. I contacted Dr. Valenzuela at [facility] who is the orthopedic surgeon on-call. He was then in contact with Dr. Barroso. The plan at this point would be for the patient to follow-up with her surgeon at 8 AM tomorrow. She should hold her warfarin and be n.p.o. after midnight in case she needs to go to the operating room. I am comfortable with this plan given she is feeling better and vitals are at her baseline. She did receive a dose of antibiotics while in the emergency department when we noticed her blood pressure was trending down due to concerns for systemic illness. Unfortunately I was unable to do a knee tap beforehand since we do not have microbiology capabilities in this stand-alone ER. I believe the patient is stable for discharge with outpatient follow-up. She was sent home with strict return precautions Diagnostic Imaging Diagonstic Imaging: Xray (knee) Comments [facility] [place], [place] NAME: ALEX [facility] REC#: [id number] PT STATUS: REG ER : 1940 PHYSICIAN: FIDELINA MARTÍNEZ MD ADMIT DATE: 01/25/22/ER FS Draft Date of Exam:01/25/22 KNEE 3 VIEW RIGHT INDICATION: Right knee replacement one month ago, now with swelling and pain. Time of Exam: 5:41 PM 3 views of the right knee were obtained demonstrating postoperative changes of total knee arthroplasty. Prosthetic elements are in good position. No fracture loosening is seen. There is suprapatellar fullness suggestive of a large joint effusion. No fractures are seen. IMPRESSION: Postoperative changes total knee arthroplasty. There appears to be a large joint effusion. No other abnormality is detected. Dictated on workstation # [id number] Dict: 01/25/22 1745 Trans: 01/25/22 1757 [facility] [id number] Interpreted by: JOY ALBERTO MD Electronically signed by: Departure Impression Primary Impression: Knee effusion, right Additional Impression: Post-operative pain Disposition: 01 HOME, SELF-CARE Condition: Stable Departure-Patient Inst. Decision time for Depature: 20:25 Referrals: MACY DUMONT DO (PCP/Family) Primary Care Physician Patient Instructions: Swollen Joints (DC) Add. Discharge Instructions: Please follow-up with Dr. Barroso at 8am tomorrow. Do not eat or drink anything after midnight other than sips of water for your medicines. Do not take your Warfarin. If you start developing a fever before then or have severe worsening pain then you can follow back up with the [facility] for quicker follow-up. FIDELINA MARTÍNEZ MD Jan 25, 2022 17:30
[2022-01-25] MEDS ORDERED: ACETAMINOPHEN 500 MG TAB (TYLENOL) PO ONE (17:45)
[2022-01-25 17:47] LABS: BASOPHILS % (AUTO) 0 % (0-10); EOSINOPHILS # (AUTO) 0.1 10^3/uL (0.0-0.3); EOSINOPHILS % (AUTO) 1 % (0-10); HEMATOCRIT 31 % (35-52); HEMOGLOBIN 9.5 g/dL (11.5-16.0); LYMPHOCYTES % (AUTO) 10 % (12-44); MEAN CORPUSCULAR HEMOGLOBIN 27 pg (25-34); MEAN CORPUSCULAR HGB CONC 31 g/dL (32-36); MEAN CORPUSCULAR VOLUME 88 fL (80-99); MEAN PLATELET VOLUME 9.2 fL (9.0-12.2); MONOCYTES % (AUTO) 10 % (0-12); NEUTROPHILS # (AUTO) 7.9 10^3/uL (1.8-7.8); NEUTROPHILS % (AUTO) 78 % (42-75); PLATELET COUNT 335 10^3/uL (130-400); WHITE BLOOD COUNT 10.1 10^3/uL (4.3-11.0)
--- NOTE | 2022-01-25 17:58 | Diagnostic Imaging Report ---
INDICATION: Right knee replacement one month ago, now with swelling and pain. Time of Exam: 5:41 PM 3 views of the right knee were obtained demonstrating postoperative changes of total knee arthroplasty. Prosthetic elements are in good position. No fracture loosening is seen. There is suprapatellar fullness suggestive of a large joint effusion. No fractures are seen. IMPRESSION: Postoperative changes total knee arthroplasty. There appears to be a large joint effusion. No other abnormality is detected. Dictated by: Dictated on workstation # [id number]
[2022-01-25 18:09] LABS: ERYTHROCYTE SEDIMENTATION RATE 52 MM/HR (0-30)
[2022-01-25] MEDS ORDERED: NS IV 500 ML 500 ML IV STA (18:09)
[2022-01-25] MEDS ORDERED: VANCOMYCIN INJECTION 1,000 MG in NS (IVPB) 250 ML IV ONE (18:15)
[2022-01-25] MEDS ORDERED: CEFEPIME INJECTION 1,000 MG in NS (IVPB) 50 ML IV ONE (18:15)
[2022-01-25 18:24] LABS: INR 1.6 (0.8-1.4); PROTHROMBIN TIME PATIENT 19.1 SEC (12.2-14.7)
[2022-01-25 18:26] LABS: BILIRUBIN,TOTAL 0.5 MG/DL (0.1-1.0); CALCIUM 8.8 MG/DL (8.5-10.1); CREATININE SERUM 1.1 MG/DL (0.60-1.30); POTASSIUM 3.8 MMOL/L (3.6-5.0)
[2022-01-25 18:27] LABS: ALBUMIN 3.7 GM/DL (3.2-4.5); TOTAL PROTEIN 6.5 GM/DL (6.4-8.2)
[2022-01-25] MEDS ORDERED: VANCOMYCIN INJECTION 750 MG in NS (IVPB) 250 ML IV ONE (19:15)
[2022-01-25 20:20] VITALS: BP 98/75
== END 2022-01-25 20:20 | disposition home or self-care (01) ==
LOC: EDUNIT# 17:17 → ER FS 17:18
DX: M25.461 Effusion, right knee (principal); G89.18 Other acute postprocedural pain; I48.91 Unspecified atrial fibrillation; Z96.651 Presence of right artificial knee joint; Z79.01 Long term (current) use of anticoagulants
CPT/HCPCS: 36415; 73562; 80053; 83605; 85025; 85610; 85652; 85730; 86141; 87040

== ENCOUNTER → 2022-02-22 | Outpatient (CLI) | payer MEDICARE ==
[~2022-02-22] MED LIST changes: +POTA-177 PO; -POTA10TA37 PO
== END ==
LOC: CARDFS 14:03
PROVIDERS: ATTEND Physician Assistant
DX: I11.9 Hypertensive heart disease without heart failure (principal); I35.0 Nonrheumatic aortic (valve) stenosis; I25.10 Atherosclerotic heart disease of native coronary artery without angina pectoris
CPT/HCPCS: 93306

== ENCOUNTER 2022-11-02 09:28 | Day surgery (SDC) | payer MEDICARE ==
[2022-11-02] VITALS (7 sets, daily range): BP systolic 101–135; BP diastolic 64–102
[~2022-11-02] VITALS: Ht 165 cm; Wt 90.5 kg
[~2022-11-02 09:28] MED LIST changes: +TIMO5DRO16 OS; -TIMO5DRO5 OU
[2022-11-02] MEDS ORDERED: NS IV 1000 ML 1,000 ML ONE (10:29)
[2022-11-02] MEDS ORDERED: NS IV 1000 ML 1,000 ML IV SCH (10:30)
--- NOTE | 2022-11-02 10:38 | Diagnostic Imaging Report ---
Indication: Arrhythmia Portable chest 10:20 AM Heart size and pulmonary vascularity are normal. Lungs are clear. There are no effusions or pneumothoraces. IMPRESSION: No acute abnormalities in the chest Dictated by: Dictated on workstation # [id number]
[2022-11-02 10:44] LABS: HEMATOCRIT 44 % (35-52); HEMOGLOBIN 14.6 g/dL (11.5-16.0); MEAN CORPUSCULAR HEMOGLOBIN 30 pg (25-34); MEAN CORPUSCULAR HGB CONC 33 g/dL (32-36); MEAN CORPUSCULAR VOLUME 92 fL (80-99); MEAN PLATELET VOLUME 10.2 fL (9.0-12.2); PLATELET COUNT 263 10^3/uL (130-400)
[2022-11-02] MEDS ORDERED: MIDAZOLAM 2 MG/2 ML (VERSED) VIAL ONE (10:44)
[2022-11-02] MEDS ORDERED: proPOfol 200 MG/20 ML (DIPRIVAN) VIAL IV ONE (10:44)
[2022-11-02 10:45] LABS: BILIRUBIN,URINE NEGATIVE (NEGATIVE); CLARITY,URINE CLEAR; COLOR,URINE YELLOW; GLUCOSE, URINE (UA) NEGATIVE (NEGATIVE); KETONES,URINE NEGATIVE (NEGATIVE); LEUKOCYTE ESTERASE ,URINE NEGATIVE (NEGATIVE); NITRITE,URINE POSITIVE (NEGATIVE); PROTEIN,URINE NEGATIVE (NEGATIVE)
[2022-11-02 10:53] LABS: WBC,URINE 0-2 /HPF
[2022-11-02 10:54] LABS: AMORPHOUS SEDIMENT,UR LARGE AMOR URATES /LPF; BACTERIA,URINE MODERATE /HPF; INR 1.4 (0.8-1.4); PROTHROMBIN TIME PATIENT 17.4 SEC (12.2-14.7); WAXY CASTS,URINE RARE /LPF
[2022-11-02 11:05] LABS: ALBUMIN 4.1 GM/DL (3.2-4.5); BILIRUBIN,TOTAL 0.7 MG/DL (0.1-1.0); CALCIUM 9.5 MG/DL (8.5-10.1); CREATININE SERUM 1.02 MG/DL (0.60-1.30); POTASSIUM 3.6 MMOL/L (3.6-5.0); TOTAL PROTEIN 6.8 GM/DL (6.4-8.2)
[2022-11-02] MEDS ORDERED: METO50TA7 PO (11:05)
[2022-11-02] MEDS ORDERED: DOCU-143 PO (11:05)
[2022-11-02] MEDS ORDERED: [UNRECOGNIZED DRUG - CODE] PO (11:05)
[2022-11-02] MEDS ORDERED: RIVA20TA PO (11:05)
[2022-11-02] MEDS ORDERED: BETA1TAB15 PO (11:05)
--- NOTE | 2022-11-02 11:37 | Cardiac Procedure Note-CS/ASA ---
Pre-Procedure Note Pre-Op Procedure Note Date of Available H&P: October 27, 2022 Date H&P Reviewed: November 02, 2022 Time H&P Reviewed: 11:00 History & Physical: H&P Reviewed, Patient Examed, No changes noted Pre-Operative Diagnosis: atrial fibrillation Moderate Sedation PreProcedure Time 11:00 ASA Score 3 Airway Lungs Heart ASA score ASA 1: a normal healthy patient ASA 2: a patient with a mild systemic disease (mid diabetes, controlled hypertension, obesity ASA 3: a patient with a severe systemic disease that limits activity (angina, COPD, prior Myocardial infarction) ASA 4: a patient with an incapacitating disease that is a constant threat to life (CHF, renal failure) ASA 5: a moribund patient not expected to survive 24 hrs. (ruptured aneurysm) ASA 6: a declared brain- patient whose organs are being harvested. For emergent operations, add the letter E after the classification Mallampati Classification Grade 3 Sedation Plan Analgesia, Amnesia, Plan communicated to team members, Discussed options with patient/fam, Discussed risks with patient/fam The patient is an appropriate candidate to undergo the planned procedure, sedation, and anesthesia. The patient immediately re-assessed prior to indication. JUAN JOSE GIBSON MD November 02, 2022 11:37
[2022-11-02] MEDS ORDERED: ATOR10TA PO (11:38)
--- NOTE | 2022-11-02 11:39 | Discharge Inst-Cardiology ---
Discharge Inst-Cardiac Problems Reviewed?: Yes Discharge Medications New, Converted or Re-Newed RX: Transmitted to Pharmacy Patient Instructions Patient Instructions: Appointment with Dr. Mondragon's office in 2 weeks Goal: Maintain sinus Activity & Diet Discharge Diet: Cardiac Diet Drink 6-8 Glasses/Fluids/Day: Yes Activity as Tolerated: Yes JUAN JOSE MONDRAGON MD November 02, 2022 11:39
--- NOTE | 2022-11-02 11:40 | Cardioversion ---
Cardioversion PROCEDURE PHYSICIAN: Juan Jose Mondragon DATE OF PROCEDURE: 11/02/22 DIRECT EXTERNAL ELECTRICAL CARDIOVERSION: Indications: Atrial Fibrillation with rapid ventricular rate Preoperative diagnoses: Atrial Fibrillation with rapid ventricular rate Postoperative diagnosis: Sinus rhythm, Successful Electrical Cardioversion History: 82-year-old lady with persistent atrial fibrillation, maintained on oral anticoagulation without interruption, she was loaded with amiodarone and scheduled for electrical cardioversion Anesthesia: By Anesthesia services Complications: None Specimen: None Contrast: 0 Flouroscopy: none Procedure Details: The patient was brought the clinical laboratory director after informed consent was taken, all the risks and complications were explained including the risk of stroke. Electrical cardioversion was carried out with anesthesia support with propofol. 200 joules of synchronized shock was delivered through external patches which promptly restored sinus rhythm. The patient tolerated the procedure well. Conclusions: Successful electrical cardioversion and terminating atrial fibrillation Final Diagnosis: Paroxysmal atrial fibrillation Hypertension Hyperlipidemia JUAN JOSE MONDRAGON MD November 02, 2022 11:40
== END 2022-11-02 12:36 | disposition home or self-care (01) ==
LOC: CARD 09:28 → CATH 12:36
PROVIDERS: ATTEND Internal Medicine Cardiovascular Disease
DX: I48.0 Paroxysmal atrial fibrillation (principal); I10 Essential (primary) hypertension; E78.5 Hyperlipidemia, unspecified; E66.9 Obesity, unspecified; I48.21 Permanent atrial fibrillation; I48.91 Unspecified atrial fibrillation; I65.23 Occlusion and stenosis of bilateral carotid arteries; C44.00 Unspecified malignant neoplasm of skin of lip; R60.0 Localized edema; Z79.899 Other long term (current) drug therapy; Z79.01 Long term (current) use of anticoagulants; Z68.33 Body mass index [BMI] 33.0-33.9, adult; Z96.651 Presence of right artificial knee joint
CPT/HCPCS: 36415; 71045; 80053; 80061; 81000; 85027; 85610; 85730; 87081; 87088; 92960; 93005

== ENCOUNTER 2022-12-01 05:32 | Outpatient (CLI) | payer MEDICARE ==
[~2022-12-01] VITALS: Ht 160 cm; Wt 89.7 kg
[~2022-12-01 05:32] MED LIST changes: +ATOR10TA PO; +BETA1TAB15 PO; +DOCU-143 PO; +METO50TA7 PO; +RIVA20TA PO; +[UNRECOGNIZED DRUG - CODE] PO
== END 2022-12-01 15:26 | disposition home or self-care (01) ==
LOC: PREOP 05:32
PROVIDERS: ATTEND Otolaryngology Otolaryngology/Facial Plastic Surgery
DX: Z01.818 Encounter for other preprocedural examination (principal)

== ENCOUNTER 2022-12-08 07:41 | Day surgery (SDC) | payer MEDICARE ==
[~2022-12-08] VITALS: Ht 160 cm; Wt 89.7 kg
[2022-12-08] VITALS (8 sets, daily range): BP systolic 123–162; BP diastolic 69–84
[2022-12-08] MEDS ORDERED: LACTATED RINGERS 1,000 ML IV PRN (08:00)
[2022-12-08 08:16] LABS: BASOPHILS % (AUTO) 1 % (0-10); EOSINOPHILS # (AUTO) 0.3 10^3/uL (0.0-0.3); EOSINOPHILS % (AUTO) 4 % (0-10); HEMATOCRIT 43 % (35-52); LYMPHOCYTES # (AUTO) 1.7 10^3/uL (1.0-4.0); LYMPHOCYTES % (AUTO) 25 % (12-44); MEAN CORPUSCULAR HEMOGLOBIN 31 pg (25-34); MEAN CORPUSCULAR HGB CONC 33 g/dL (32-36); MEAN CORPUSCULAR VOLUME 95 fL (80-99); MONOCYTES # (AUTO) 0.7 10^3/uL (0.0-1.0); MONOCYTES % (AUTO) 10 % (0-12); NEUTROPHILS # (AUTO) 4.1 10^3/uL (1.8-7.8); NEUTROPHILS % (AUTO) 60 % (42-75); PLATELET COUNT 295 10^3/uL (130-400); WHITE BLOOD COUNT 6.8 10^3/uL (4.3-11.0)
[2022-12-08 08:28] LABS: POTASSIUM 3.4 MMOL/L (3.6-5.0)
[2022-12-08 08:29] LABS: CALCIUM 9.2 MG/DL (8.5-10.1)
[2022-12-08 08:33] LABS: CREATININE SERUM 1.01 MG/DL (0.60-1.30)
[2022-12-08] MEDS ORDERED: LIDOCAINE PF 2% 5 ML (XYLOCAINE) VIAL ONE (09:47)
[2022-12-08] MEDS ORDERED: ONDANSETRON 4 MG/2 ML (SDV) Z0FRAN ONE (09:47)
[2022-12-08] MEDS ORDERED: proPOfol 200 MG/20 ML (DIPRIVAN) VIAL IV ONE (09:47)
[2022-12-08] MEDS ORDERED: fentaNYL INJ 100 MCG/2 ML AMP ONE (09:47)
[2022-12-08] MEDS ORDERED: LIDOCAINE/EPI 1%-1:100,000 (XYLOCAINE) 20ML ONE (09:55)
--- NOTE | 2022-12-08 10:31 | Progress Note-Pre Operative ---
Pre-Operative Progress Note Date of Available H&P: Dec 08, 2022 Date H&P Reviewed: Dec 08, 2022 Time H&P Reviewed: 10:00 History & Physical: H&P Reviewed, Patient Examed, No changes noted Changes from last HP none Pre-Operative Diagnosis: Basal Cell Right Upper Lip LATA CASSIDY MD Dec 08, 2022 10:31
--- NOTE | 2022-12-08 11:06 | Progress Note-Post Operative ---
Post-Operative Progess Note Surgeon (s)/Credit Risk Management Director (s) Surgeon LATA CASSIDY MD Credit Risk Management Director n/a Pre-Operative Diagnosis Basal Cell Right Upper Lip Post-Operative Diagnosis same Post-Op Procedure Note Date of Procedure: Dec 08, 2022 Name of Procedure Performed: Excision of Upper Lip Lesion with INtermediate Repair Description & Findings Description and Findings: n/a Anesthesia Type lma Estimated Blood Loss minimal Packing none. Specimen(s) collected/removed upper lip lesion to pathology LATA CASSIDY MD Dec 08, 2022 11:06
[2022-12-08] MEDS ORDERED: ACETAMINOPHEN 325 MG TABLET PO PRN ×2 (11:15)
[2022-12-08] MEDS ORDERED: HYDROcodone/APAP 5 MG/325 MG (LORTAB) TAB PO PRN (11:15)
[2022-12-08] MEDS ORDERED: SEVOFLURANE (ULTANE) 15 ML INHAL SOLN ONE (11:18)
[2022-12-08] MEDS ORDERED: ONDANSETRON 4 MG/2 ML (SDV) Z0FRAN IVP PRN (11:45)
[2022-12-08] MEDS ORDERED: morphine INJ 10 MG/ML 1ML (SYR OR VIAL) IVP ONE (11:45)
--- NOTE | 2022-12-08 12:06 | Anesthesia-General Post-Op ---
General Patient Condition Mental Status/LOC: Same as Preop Cardiovascular: Satisfactory Nausea/Vomiting: Absent Respiratory: Satisfactory Pain: Controlled Complications: Absent Post Op Complications Complications None Follow Up Care/Instructions Patient Instructions None needed. Anesthesia/Patient Condition Patient Condition Patient was [place] [facility] [place] was doing well, no complaints, stable vital signs, no apparent adverse anesthesia problems. No complications reported per nursing. JANIA STANLEY 22, 2023 12:06
[2022-12-08] MEDS ORDERED: CEPH500T PO (12:19)
[2022-12-08] MEDS ORDERED: ACHD5005 PO (12:19)
== END 2022-12-08 12:40 | disposition home or self-care (01) ==
LOC: SDC 07:41
PROVIDERS: ATTEND Otolaryngology Otolaryngology/Facial Plastic Surgery
DX: C44.01 Basal cell carcinoma of skin of lip (principal); H61.23 Impacted cerumen, bilateral; Z28.310 Unvaccinated for COVID-19
CPT/HCPCS: 36415; 80048; 85025; 87081; 88305; 88331; 88332; 93005

== ENCOUNTER 2023-01-22 13:40 | Emergency (ER) | payer MEDICARE ==
[~2023-01-22 13:40] MED LIST changes: +ACHD5005 PO; +CEPH500T PO
[2023-01-22] MEDS ORDERED: HYDROcodone/ACETAMINOPHEN 5 MG/325 MG TABLET PO ONE (14:00)
--- NOTE | 2023-01-22 14:00 | ED Fall/Injury ---
General Chief Complaint: Lower Extremity Stated Complaint: LT HIP PAIN Source: patient, family Exam Limitations: no limitations History of Present Illness Date Seen by Provider: Jan 22, 2023 Time Seen by Provider: 13:45 Initial Comments 82-year-old female with past medical history most notable for A-fib on anticoagulation coming in after a remote history of a fall. She tripped 3 weeks ago, landed on her left side. She did not hit her head, did not pass out, r emembers all events, no nausea or vomiting. She is noticed some bruising to her back and left hip. Pain in the left hip since then, worse over the past week. Worse with ambulation, better with rest. Went to her primary care provider, was prescribed tramadol which is not really helping. Otherwise denying any other acute complaints. Allergies and Home Medications Allergies Coded Allergies: Selvin Known Allergies (Verified Allergy, Unknown, 12/01/22) Patient Home Medication List Home Medication List Reviewed: Yes Amiodarone HCl (Pacerone) 200 Mg Tablet, 200 MG PO BID, (Reported) Entered as Reported by: RONNIE ARDON on 05/20/21 1408 Atorvastatin Calcium (Lipitor) 10 Mg Tablet, 10 MG PO DAILY Prescribed by: JUAN JOSE GIBSON on 11/02/22 1138 Bismuth Subsalicylate (Bismuth) 262 Mg Tab.chew, 262 MG PO DAILY, (Reported) Entered as Reported by: SUDARSHAN LEWIS on 11/02/22 1105 Cephalexin (Cephalexin) 500 Mg Tablet, 500 MG PO TID Prescribed by: ADELINE OH on 12/08/22 1219 Docusate Sodium (Colace) 100 Mg Capsule, 100 MG PO DAILY PRN for CONSTIPATION- 1ST LINE, (Reported) Entered as Reported by: SUDARSHAN LEWIS on 11/02/22 1105 Furosemide (Furosemide) 40 Mg Tablet, 40 MG PO BID, (Reported) Entered as Reported by: RONNIE ARDON on 11/04/20 1122 Hydrocodone/Acetaminophen (Hydrocodone-Acetamin 5-325 mg) 5 Mg-325 Mg Tablet, 1 TAB PO Q4H PRN for PAIN-MODERATE (5-7) Prescribed by: ADELINE OH on 12/08/22 1219 Metoprolol Succinate (Metoprolol Succinate) 50 Mg Tab.er.24h, 50 MG PO 1200, (Reported) Entered as Reported by: SUDARSHAN LEWIS on 11/02/22 1105 Multivitamin (Multiple Vitamins) 1 Each Tablet, 1 EACH PO DAILY, (Reported) Entered as Reported by: RONNIE ARDON on 11/04/20 112 Potassium Chloride (Potassium Chloride) 10 Meq Tab.er.prt, 10 MEQ PO DAILY, (Reported) Entered as Reported by: RONNIE ARDON on 11/04/20 112 Timolol Maleate (Timolol Maleate 0.5%) 0.5 % Drops, 1 DROP OS BID, (Reported) Entered as Reported by: RONNIE ARDON on 11/04/20 112 Ubidecarenone (Coq-10) 100 Mg Capsule, 200 MG PO DAILY, (Reported) Entered as Reported by: RONNIE ARDON on 11/04/20 112 Vit A/Vit C/Vit E/Zinc/Copper (Preservision Areds Tablet) 2,148-113 Tablet, 1 EACH PO DAILY, (Reported) Entered as Reported by: SUDARSHAN LEWIS on 11/02/22 1105 Review of Systems Review of Systems Constitutional: No fever Eyes: No Symptoms Reported Ears, Nose, Mouth, Throat: no symptoms reported Respiratory: no symptoms reported Cardiovascular: no symptoms reported Gastrointestinal: no symptoms reported Genitourinary: no symptoms reported Musculoskeletal: see HPI Skin: no symptoms reported Psychiatric/Neurological: No Symptoms Reported Past Vhlkudj-Ogqmeb-Ggkffc Hx Immunizations Up To Date Tetanus Booster (TDap): Unknown Seasonal Allergies Seasonal Allergies: No Past Medical History Surgery/Hospitalization HX: asthma, atrial fibrillation, breast cancer Surgeries: Yes (SKIN PRECANCER LESION REMOVED, BLADDER LIFT) Hysterectomy, Lumpectomy, Oophorectomy, Orthopedic Respiratory: Yes (USES OXYGEN AT HS) Asthma, Sleep Apnea Currently Using CPAP: Yes Currently Using BIPAP: No Cardiac: Yes Atrial Fibrillation, High Cholesterol, Hypertension Neurological: No Sexually Transmitted Disease: No Genitourinary: Yes ("BLADDER FALLEN") Bladder Infection Gastrointestinal: Yes Hepatitis Musculoskeletal: Yes Arthritis Endocrine: No HEENT: Yes (WEARS GLASSES) Loss of Vision: Bilateral Hearing Impairment: Hard of Hearing Cancer: Yes Breast, Melanoma, Uterine What Type of Treatment Did You: Chemotherapy, Surgical Intervention Psychosocial: No Integumentary: Yes (SKIN LESION) Blood Disorders: No Adverse Reaction/Blood Tranf: No Family Medical History No Pertinent Family Hx Physical Exam Vital Signs Vital Signs - First Documented 01/22/23 13:45 Temp 36.2 Pulse 63 Resp 16 B/P (MAP) 120/67 (84) Pulse Ox 95 O2 Delivery Room Air Capillary Refill : Height, Weight, BMI Height: '" Weight: lbs. oz. kg; 35.03 BMI Method: General Appearance: WD/WN, no apparent distress HEENT: PERRL/EOMI, normal ENT inspection, pharynx normal Neck: non-tender, full range of motion, supple, normal inspection Respiratory: chest non-tender, lungs clear, normal breath sounds, no respiratory distress, no accessory muscle use Gastrointestinal: normal bowel sounds, non tender, soft; No distended, No guarding, No rebound Back: normal inspection, no CVA tenderness, no vertebral tenderness Extremities: normal range of motion, no pedal edema, no calf tenderness, normal capillary refill, other (Pain along the left lateral hip with bruising along the entire lower back and left hip) Neurologic/Psychiatric: no motor/sensory deficits, alert, normal mood/affect, oriented x 3 Skin: normal color, warm/dry, ecchymosis Sturdivant Coma Score Best Eye Response: (4) Open Spontaneously Best Verbal Response: (5) Oriented Best Motor Response: (6) Obeys Commands Progress/Results/Core Measures Results/Orders My Orders Orders - FIDELINA MARTÍNEZ MD Chest Pa/Lat (2 View) (01/22/23 13:55) Pelvis With Left Hip 2-3 View (01/22/23 13:55) Hydrocodone/Apap 5/325 Tablet (Hydrocod (01/22/23 14:00) Medications Given in ED Current Medications Medications Dose Ordered Sig/Mery Route Start Time Stop Time Status Last Admin Dose Admin Acetaminophen/ Hydrocodone Bitart 1 ea ONCE ONCE PO 01/22/23 14:00 01/22/23 14:01 DC 01/22/23 14:02 1 EA Vital Signs/I&O 01/22/23 13:45 Temp 36.2 Pulse 63 Resp 16 B/P (MAP) 120/67 (84) Pulse Ox 95 O2 Delivery Room Air Progress Progress Note : Progress Note 82-year-old female with above history coming in after a fall 3 weeks ago. ABCs were intact and vitals were stable on presentation with a GCS of 15. Physical e xam with ecchymosis to her lower back to the left hip. Tender to palpation with the left hip, able to ambulate and able to range her hip fully with a low suspicion for fracture given that. If she had come in acutely, I would have recommended a CT of her head and C-spine, however given it has been 3 weeks since she has been ambulating with no pain to her head or neck, highly unlikely she has a clinically significant injury in those regions. We will get a chest x-ray as well as a pelvis and left hip x-ray. She will be given hydrocodone for pain. On my interpretation of the x-rays I do not see any obvious fracture, particularly in her left hip, and no displaced rib fractures that are obvious with no pneumothorax. Given she is ambulatory, very low likelihood for occult hip fracture as well. Most likely just having pain from the large hematoma that is present. I believe she is otherwise stable for discharge with outpatient follow-up. She was sent home with strict return precautions. Diagnostic Imaging Diagonstic Imaging: Xray (chest, pelvis with left hip) Departure Impression Primary Impression: Traumatic hematoma Additional Impression: Left hip pain Disposition: HOME, SELF-CARE Condition: Stable Departure-Patient Inst. Referrals: MACY DUMONT DO (PCP/Family) Primary Care Physician Patient Instructions: Opioid medicines for short-term treatment of pain, Hip Pain Add. Discharge Instructions: There does not appear to be anything that is obviously broken on your x-rays. You have a lot of soft tissue damage and bruising under your skin which is likely a lot of your pain. Take the tramadol for moderate pain, and try to take hydrocodone for more severe pain if the pharmacy will fill it. Scripts Hydrocodone/Acetaminophen (Hydrocodone-Acetamin 5-325 mg) 5 Mg-325 Mg Tablet 1 TAB PO Q6H PRN for SEVERE PAIN for 3 Days, #12 TAB Prov: FIDELINA MARTÍNEZ MD 01/22/23 FIDELINA MARTÍNEZ MD Jan 22, 2023 14:00
[2023-01-22] MEDS ORDERED: ACHD5005 PO (14:26)
[2023-01-22 14:27] VITALS: BP 120/67
--- NOTE | 2023-01-22 14:56 | Diagnostic Imaging Report ---
CLINICAL INDICATION: Patient is status post fall with posterior rib pain and left hip pain. EXAM: Chest x-ray PA and lateral views. COMPARISON: Chest x-ray dated 11/02/2022. FINDINGS: Lungs/pleura: There is mild bibasilar atelectasis. There is elevation of the left hemidiaphragm. There is no definite lung infiltrate. There is no pneumothorax. There is no pleural effusion. Mediastinum: Unremarkable. Pulmonary vasculature: Unremarkable. Heart: Unremarkable. Bones/extrathoracic soft tissue: There are degenerative spurs involving the thoracic spine. There is a compression deformity involving the oqg-go-xzluw thoracic vertebra of unknown age. IMPRESSION: 1: There is mild bibasilar atelectasis with no lung infiltrate. 2: There is a compression fracture deformity involving the fmj-ia-congk thoracic spine of unknown age. If there is concern for thoracic spine fracture, CT scan would better evaluate. Dictated by: Dictated on workstation # [id number]
--- NOTE | 2023-01-22 15:10 | Diagnostic Imaging Report ---
CLINICAL INDICATION: Patient status post fall with left hip pain. EXAM: X-ray of the pelvis, AP view, and x-ray of the left hip, AP and frog-leg views. COMPARISON: None. FINDINGS: There is no acute fracture or dislocation. There are small spurs involving the bilateral femoral head/neck junction regions. There is osteopenia noted. Sacroiliac joint shows no significant abnormality. There are surgical clips overlying the pelvis region. IMPRESSION: There is no acute fracture or dislocation. Given that the patient has osteopenia, if there is continued concern for left hip fracture, CT scan would better evaluate. Dictated by: Dictated on workstation # [id number]
== END 2023-01-22 14:27 | disposition home or self-care (01) ==
LOC: EDUNIT# 13:40 → ER FS 13:42
DX: S70.02XA Contusion of left hip, initial encounter (principal); S30.0XXA Contusion of lower back and pelvis, initial encounter; I48.91 Unspecified atrial fibrillation; G47.30 Sleep apnea, unspecified; J45.909 Unspecified asthma, uncomplicated; Z99.81 Dependence on supplemental oxygen; Z79.01 Long term (current) use of anticoagulants; Z99.89 Dependence on other enabling machines and devices; W01.0XXA Fall on same level from slipping, tripping and stumbling without subsequent striking against object, initial encounter
CPT/HCPCS: 71046; 73502

== ENCOUNTER 2023-01-30 13:43 | Inpatient (IN) | payer MEDICARE ==
[~2023-01-30] VITALS: Ht 167 cm; Wt 90.7 kg
[~2023-01-30 13:43] MED LIST changes: -TIMO5DRO16 OS; +TIMO5DRO16 OU
[2023-01-30 14:08] LABS: BASOPHILS # (AUTO) 0.1 10^3/uL (0.0-0.1); BASOPHILS % (AUTO) 1 % (0-10); EOSINOPHILS # (AUTO) 0.1 10^3/uL (0.0-0.3); EOSINOPHILS % (AUTO) 1 % (0-10); HEMATOCRIT 39 % (35-52); HEMOGLOBIN 11.5 g/dL (11.5-16.0); LYMPHOCYTES # (AUTO) 0.8 10^3/uL (1.0-4.0); LYMPHOCYTES % (AUTO) 10 % (12-44); MEAN CORPUSCULAR HEMOGLOBIN 31 pg (25-34); MEAN CORPUSCULAR HGB CONC 30 g/dL (32-36); MEAN CORPUSCULAR VOLUME 103 fL (80-99); MEAN PLATELET VOLUME 9.4 fL (9.0-12.2); MONOCYTES # (AUTO) 0.8 10^3/uL (0.0-1.0); MONOCYTES % (AUTO) 11 % (0-12); NEUTROPHILS # (AUTO) 5.5 10^3/uL (1.8-7.8); NEUTROPHILS % (AUTO) 74 % (42-75); PLATELET COUNT 379 10^3/uL (130-400); WHITE BLOOD COUNT 7.5 10^3/uL (4.3-11.0)
--- NOTE | 2023-01-30 14:14 | Diagnostic Imaging Report ---
INDICATION: Shortness of breath and hypoxia and had recent fall. Comparison is made with prior exam of 11/02/2022. FINDINGS: There is cardiomegaly. There is some venous congestion. There is some left basilar atelectasis and/or pneumonitis and small left pleural effusion. No pneumothorax. IMPRESSION: Left basilar atelectasis and/or pneumonitis and small left pleural effusion. Cardiomegaly and some central pulmonary venous congestion. Dictated by: Dictated on workstation # [id number]
[2023-01-30 14:24] LABS: INR 1.5 (0.8-1.4); PROTHROMBIN TIME PATIENT 18.6 SEC (12.2-14.7)
[2023-01-30 14:26] LABS: ABG PH 7.26 (7.37-7.43)
[2023-01-30 14:27] LABS: ABG BASE EXCESS 10.7 MMOL/L (-2.5-2.5); ABG PCO2 92 MMHG (35-45); ABG PO2 78 MMHG (79-93); ABG TCO2 44.1 MMOL/L (21.0-31.0)
[2023-01-30 14:28] LABS: ABG OXYGEN SATURATION 93 % (94-100); INSPIRED O2 5 L O2; PATIENT TEMP 36.1; VENTILATOR NO
[2023-01-30] MEDS ORDERED: LACTULOSE SYRUP 10GM/15ML 30ML UDC PO PRN (14:30)
[2023-01-30] MEDS ORDERED: ONDANSETRON 4 MG/2 ML (SDV) Z0FRAN IV PRN (14:30)
[2023-01-30] MEDS ORDERED: polyethylene glycoL POWDER 17 GM (MIRALAX) PACK PO PRN (14:30)
[2023-01-30] MEDS ORDERED: ONDANSETRON 4 MG (ZOFRAN) ORAL DISSOLVE TAB PO PRN (14:30)
[2023-01-30] MEDS ORDERED: ANTACID SUSPENSION 30 ML UDC PO PRN (14:30)
[2023-01-30] MEDS ORDERED: ACETAMINOPHEN 325 MG TABLET PO PRN (14:30)
[2023-01-30] MEDS ORDERED: MELATONIN 3 MG TABLET PO PRN (14:30)
[2023-01-30] MEDS ORDERED: BISACODYL 10 MG SUPPOSITORY PR PRN (14:30)
[2023-01-30] MEDS ORDERED: NS IV 500 ML 500 ML IV PRN (14:30)
--- NOTE | 2023-01-30 14:39 | ED Respiratory ---
General Chief Complaint: Respiratory Problems Stated Complaint: RESPIRATORY DISTRESS Nursing Triage Note: Patient presents to the ED with c/o shortness of breath. EMS report family stated patient was last well known time last night around 2200. Shortness of breath beginning today. EMS report home oxygen did not appear on when they arrived. Placed patient on 6L nasal cannula and saturations improved into mid 90s. Patient reports she feels as if she can't catch her breath. Switched to oxymask at 5L with staurations noted in mid 90s. Source: patient, family, EMS, RN notes reviewed, EMS notes reviewed Exam Limitations: clinical condition History of Present Illness Date Seen by Provider: Jan 30, 2023 Time Seen by Provider: 13:45 Initial Comments 82-year-old female patient with history of COPD on home oxygen, atrial fibrillation, CHF, asthma, hypertension, hyperlipidemia, sleep apnea, hepatitis brought in by EMS because of hypoxia and shortness of breath. Patient's son who lives with her stated he saw her last night without shortness of breath but this morning she complaining of shortness of breath and unable to catch her breath. Patient had mild cough and increasingly sleeping for the last few days. EMS reported that it looked her oxygen did not work and after starting her on 6 L of oxygen her O2 sat increased to 90s. Patient denies chest pain, fever and chills, headache and myalgia. Patient is alert and oriented but somnolent and unable to give history. Patient had a fall about 1 month ago and was seen by her primary care physician and started on Tramadol for left hip and flank pain and because the pain medication did not help for her pain she was seen in this emergency room again on January 22 and treated with [place]. The last dose of pain medication was 2 or 3 days ago. Patient had O2 sat of 96% on 6 L of oxygen and respiratory rate of 33 at arrival to ER. Patient had Solu-Medrol 125 mg IV and DuoNeb prior to arrival to ER by EMS. Allergies and Home Medications Allergies Coded Allergies: LILLIANANo Known Allergies (Verified Allergy, Unknown, 12/01/22) Patient Home Medication List Home Medication List Reviewed: Yes Amiodarone HCl (Pacerone) 200 Mg Tablet, 200 MG PO BID, (Reported) Entered as Reported by: RONNIE ARDON on 05/20/21 3408 Atorvastatin Calcium (Lipitor) 10 Mg Tablet, 10 MG PO DAILY Prescribed by: JUAN JOSE GIBSON on 11/02/22 1138 Bismuth Subsalicylate (Bismuth) 262 Mg Tab.chew, 262 MG PO DAILY, (Reported) Entered as Reported by: SUDARSHAN LEWIS on 11/02/22 1105 Cephalexin (Cephalexin) 500 Mg Tablet, 500 MG PO TID Prescribed by: ADELINE OH on 12/08/22 1219 Docusate Sodium (Colace) 100 Mg Capsule, 100 MG PO DAILY PRN for CONSTIPATION- 1ST LINE, (Reported) Entered as Reported by: SUDARSHAN LEWIS on 11/02/22 1105 Furosemide (Furosemide) 40 Mg Tablet, 40 MG PO BID, (Reported) Entered as Reported by: RONNIE ARDON on 11/04/20 112 Hydrocodone/Acetaminophen (Hydrocodone-Acetamin 5-325 mg) 5 Mg-325 Mg Tablet, 1 TAB PO Q4H PRN for PAIN-MODERATE (5-7) Prescribed by: ADELINE OH on 12/08/22 1219 Hydrocodone/Acetaminophen (Hydrocodone-Acetamin 5-325 mg) 5 Mg-325 Mg Tablet, 1 TAB PO Q6H PRN for SEVERE PAIN Prescribed by: FIDELINA MARTÍNEZ on 01/22/23 1426 Metoprolol Succinate (Metoprolol Succinate) 50 Mg Tab.er.24h, 50 MG PO 1200, (Reported) Entered as Reported by: SUDARSHAN LEWIS on 11/02/22 1105 Multivitamin (Multiple Vitamins) 1 Each Tablet, 1 EACH PO DAILY, (Reported) Entered as Reported by: RONNIE ARDON on 11/04/20 1122 Potassium Chloride (Potassium Chloride) 10 Meq Tab.er.prt, 10 MEQ PO DAILY, (Reported) Entered as Reported by: RONNIE ARDON on 11/04/20 112 Timolol Maleate (Timolol Maleate 0.5%) 0.5 % Drops, 1 DROP OS BID, (Reported) Entered as Reported by: RONNIE ARDON on 11/04/20 112 Ubidecarenone (Coq-10) 100 Mg Capsule, 200 MG PO DAILY, (Reported) Entered as Reported by: RONNIE ARDON on 11/04/20 1122 Vit A/Vit C/Vit E/Zinc/Copper (Preservision Areds Tablet) 2,148-113 Tablet, 1 EACH PO DAILY, (Reported) Entered as Reported by: SUDARSHAN LEWIS on 11/02/22 1105 Review of Systems Review of Systems Constitutional: see HPI, malaise, weakness EENTM: no symptoms reported Respiratory: see HPI Cardiovascular: no symptoms reported Gastrointestinal: no symptoms reported Genitourinary: no symptoms reported Musculoskeletal: see HPI Past Heppsnk-Clnlnh-Httbqx Hx Patient Social History Tobacco Use?: No Use of E-Cig and/or Vaping dev: No Substance use?: No Alcohol Use?: No Pt feels they are or have been: No Immunizations Up To Date Tetanus Booster (TDap): Unknown First/Initial COVID19 Vaccinat: YES Second COVID19 Vaccination Pete: YES Third COVID19 Vaccination Date: YES Seasonal Allergies Seasonal Allergies: No Past Medical History Surgery/Hospitalization HX: asthma, atrial fibrillation, breast cancer, CHF, Oxygen dependant at night Surgeries: Yes (SKIN PRECANCER LESION REMOVED, BLADDER LIFT) Hysterectomy, Lumpectomy, Oophorectomy, Orthopedic Respiratory: Yes (USES OXYGEN AT HS) Asthma, Sleep Apnea Currently Using CPAP: Yes Currently Using BIPAP: No Cardiac: Yes Atrial Fibrillation, High Cholesterol, Hypertension Neurological: No Sexually Transmitted Disease: No Genitourinary: Yes ("BLADDER FALLEN") Bladder Infection Gastrointestinal: Yes Hepatitis Musculoskeletal: Yes Arthritis Endocrine: No HEENT: Yes (WEARS GLASSES) Loss of Vision: Bilateral Hearing Impairment: Hard of Hearing Cancer: Yes Breast, Melanoma, Uterine What Type of Treatment Did You: Chemotherapy, Surgical Intervention Psychosocial: No Integumentary: Yes (SKIN LESION) Blood Disorders: No Adverse Reaction/Blood Tranf: No Family Medical History No Pertinent Family Hx Physical Exam Vital Signs - First Documented 01/30/23 01/30/23 13:43 14:30 Temp 35.2 Pulse 59 Resp 33 B/P (MAP) 112/92 (99) Pulse Ox 96 O2 Delivery Nasal Cannula O2 Flow Rate 50.00 Capillary Refill : Less Than 3 Seconds Height: '" Weight: lbs. oz. kg; 35.03 BMI Method: General Appearance: moderate distress Eyes: Bilateral Eye Normal Inspection HEENT: PERRL/EOMI, normal ENT inspection, TMs normal Neck: non-tender Respiratory: respiratory distress, decreased breath sounds, accessory muscle use, rhonchi Cardiovascular: no murmur, bradycardia Gastrointestinal: normal bowel sounds, non tender, other (Old ecchymosis of right upper quadrant abdominal wall) Extremities: pedal edema (Bilateral 1+ edema) Neurologic/Psychiatric: no motor/sensory deficits, other (Somnolent, opens her eyes with verbal stimuli) Skin: normal color, warm/dry Focused Exam Lactate Level 01/30/23 13:53: Lactic Acid Level 0.96 Lactic Acid Level Laboratory Tests Test 01/30/23 13:53 Lactic Acid Level 0.96 MMOL/L (0.50-2.00) Progress/Results/Core Measures Suspected Sepsis SIRS Temperature: Pulse: 59 Respiratory Rate: 33 Laboratory Tests 01/30/23 13:53: White Blood Count 7.5 Blood Pressure 112 /92 Mean: 99 01/30/23 13:53: Lactic Acid Level 0.96 Laboratory Tests 01/30/23 13:53: Creatinine 0.89, INR Comment 1.5H, Platelet Count 379, Total Bilirubin 0.5 Results/Orders Lab Results Laboratory Tests Test 01/30/23 13:53 01/30/23 13:57 01/30/23 14:02 Range/Units White Blood Count 7.5 4.3-11.0 10^3/uL Red Blood Count 3.73 L 3.80-5.11 10^6/uL Hemoglobin 11.5 11.5-16.0 g/dL Hematocrit 39 35-52 % Mean Corpuscular Volume 103 H 80-99 fL Mean Corpuscular Hemoglobin 31 25-34 pg Mean Corpuscular Hemoglobin Concent 30 L 32-36 g/dL Red Cell Distribution Width 15.2 H 10.0-14.5 % Platelet Count 379 130-400 10^3/uL Mean Platelet Volume 9.4 9.0-12.2 fL Immature Granulocyte % (Auto) 4 % Neutrophils (%) (Auto) 74 42-75 % Lymphocytes (%) (Auto) 10 L 12-44 % Monocytes (%) (Auto) 11 0-12 % Eosinophils (%) (Auto) 1 0-10 % Basophils (%) (Auto) 1 0-10 % Neutrophils # (Auto) 5.5 1.8-7.8 10^3/uL Lymphocytes # (Auto) 0.8 L 1.0-4.0 10^3/uL Monocytes # (Auto) 0.8 0.0-1.0 10^3/uL Eosinophils # (Auto) 0.1 0.0-0.3 10^3/uL Basophils # (Auto) 0.1 0.0-0.1 10^3/uL Immature Granulocyte # (Auto) 0.3 H 0.0-0.1 10^3/uL Prothrombin Time 18.6 H 12.2-14.7 SEC INR Comment 1.5 H 0.8-1.4 Activated Partial Thromboplast Time 37 H 24-35 SEC Sodium Level 145 135-145 MMOL/L Potassium Level 4.1 3.6-5.0 MMOL/L Chloride Level 99 98-107 MMOL/L Carbon Dioxide Level 36 H 21-32 MMOL/L Anion Gap 10 5-14 MMOL/L Blood Urea Nitrogen 16 7-18 MG/DL Creatinine 0.89 0.60-1.30 MG/DL Estimat Glomerular Filtration Rate 64 BUN/Creatinine Ratio 18 Glucose Level 131 H 70-105 MG/DL Lactic Acid Level 0.96 0.50-2.00 MMOL/L Calcium Level 9.1 8.5-10.1 MG/DL Corrected Calcium 9.4 8.5-10.1 MG/DL Magnesium Level 2.1 1.6-2.4 MG/DL Total Bilirubin 0.5 0.1-1.0 MG/DL Aspartate Amino Transf (AST/SGOT) 22 5-34 U/L Alanine Aminotransferase (ALT/SGPT) 24 0-55 U/L Alkaline Phosphatase 141 H 40-136 U/L Troponin I < 0.30 <0.30 NG/ML Pro-B-Type Natriuretic Peptide 692.0 H <450.0 PG/ML Total Protein 6.5 6.4-8.2 GM/DL Albumin 3.6 3.2-4.5 GM/DL Blood Gas Puncture Site L WRIST Blood Gas Patient Temperature 36.1 Arterial Blood pH 7.26 *L 7.37-7.43 Arterial Blood Partial Pressure CO2 92 *H 35-45 MMHG Arterial Blood Partial Pressure O2 78 L 79-93 MMHG Arterial Blood HCO3 41 *H 23-27 MMOL/L Arterial Blood Total CO2 44.1 *H 21.0-31.0 MMOL/L Arterial Blood Oxygen Saturation 93 L 94-100 % Arterial Blood Base Excess 10.7 H -2.5-2.5 MMOL/L Pedro Test UNK Blood Gas Ventilator Setting NO Blood Gas Inspired Oxygen 5 L O2 Glucometer 120 H 70-110 MG/DL My Orders Orders - YUKO TRUONG MD Cbc With Automated Diff (01/30/23 13:56) Comprehensive Metabolic Panel (01/30/23 13:56) Chest 1 View Ap/Pa Only (01/30/23 13:56) Magnesium (01/30/23 13:56) Ekg Tracing (01/30/23 13:56) O2 (01/30/23 13:56) Ed Iv/Invasive Line Start (01/30/23 13:56) Monitor-Rhythm Ecg Trace Only (01/30/23 13:56) Lactic Acid Analyzer (01/30/23 13:56) Arterial Blood Gas (01/30/23 13:56) Troponin I Fs (01/30/23 13:56) Probnp Fs (01/30/23 13:56) Protime With Inr (01/30/23 14:06) Partial Thromboplastin Time (01/30/23 14:06) Ed Admission (Communication) (01/30/23 15:34) Vital Signs/I&O 01/30/23 01/30/23 01/30/23 01/30/23 13:43 13:43 14:30 15:30 Temp 35.2 35.2 Pulse 59 57 Resp 33 29 B/P (MAP) 112/92 (99) 107/52 Pulse Ox 96 95 O2 Delivery Nasal Cannula OxyMask NIV Bilevel O2 Flow Rate 50.00 Capillary Refill : Less Than 3 Seconds Blood Pressure Mean: 99 Point of Care Testing Finger Stick Blood Glucose: 120 Progress Note : Progress Note 82-year-old female patient brought in by EMS because of shortness of breath. Family stated she was more somnolent the last few days. Patient recently was seen in this emergency room and had prescription of hydrocodone for a fall about 1 month ago and pain in left hip. Patient was in acute respiratory distress at arrival to ER with O2 sat of 95% on 6 L of oxygen and increasing of respiratory rate of 33 with intercostal retractions. Patient is on home oxygen and ABG showed pH of 7.25 and PCO2 of 92 and CO2 of 42. Patient was a started on BiPAP with respiratory rate of 18 and O2 of 50% with improvement of her condition and decrease of respiration and increase of oxygen to 97-100%. CBC. CMP, BNP, troponin, lactic acid, PT/INR and PTT was ordered and reviewed by me and did not show leukocytosis or elevation of lactic acid. Chest x-ray interpreted by me and showed cardiomegaly with pulmonary vascular congestion. On-call hospitalist Dr. White was consulted at 1430 and accepted admission to ICU with diagnosis of acute respiratory failure. Patient already had Solu-Medrol and DuoNeb by EMS. ECG Initial ECG Impression Date: Jan 30, 2023 Initial ECG Impression Time: 14:14 Initial ECG Rhythm: S.Juan Diego Initial ECG Intervals EKG interpreted by me. EKG shows sinus bradycardia with first-degree AV block, WV interval of 241, QT interval of 379 and QTc of 369, QRS duration of 94, Q waves in anterior leads, no acute ST and T wave elevation. Diagnostic Imaging Diagonstic Imaging: Xray Plain Films/CT/US/NM/MRI: chest Comments 1 view chest x-ray ordered and interpreted by me and showed cardiomegaly with increased pulmonary markings. 1 view chest x-ray interpreted by radiologist and reviewed by me and showed: [facility], [place] NAME: ALEX BOOTH [facility] REC#: [id number] PT STATUS: REG ER : 1940 PHYSICIAN: YUKO TRUONG MD ADMIT DATE: 01/30/23/ER FS Signed Date of Exam:01/30/23 CHEST 1 VIEW AP/PA ONLY INDICATION: Shortness of breath and hypoxia and had recent fall. Comparison is made with prior exam of 11/02/2022. FINDINGS: There is cardiomegaly. There is some venous congestion. There is some left basilar atelectasis and/or pneumonitis and small left pleural effusion. No pneumothorax. IMPRESSION: Left basilar atelectasis and/or pneumonitis and small left pleural effusion. Cardiomegaly and some central pulmonary venous congestion. Dictated by: Dictated on workstation # [id number] Dict: 01/30/23 1412 Trans: 01/30/23 1414 CVB [id number] Interpreted by: ISAEL RIOS MD Electronically signed by: ISAEL RIOS MD 01/30/23 1414 Critical Care Note Critical Care Start Time: 13:45 Stop Time: 14:34 Total Time (minutes) 89 minutes Progress Total time of critical care including taking history, examination, ordering labs and x-ray and EKG, reviewing the labs, starting the BiPAP and setting up the BiPAP, talking to consulting physician, talking to family members and documentation was 89 minutes. Departure Communication (Admissions) Time/Spoke to Admitting Phy: 14:30 Dr. White on-call hospitalist accepted admission at 1430. Family Conversation Patient's son and granddaughter was informed about test results and plan of care and need for transfer and all questions was addressed. Impression Primary Impression: Acute on chronic respiratory failure with hypoxia and hypercapnia Additional Impressions: CO2 narcosis Elevated brain natriuretic peptide (BNP) level Cardiomegaly Disposition: 30 STILL A PATIENT Condition: Critical Admissions Decision to Admit Reason: Admit from ER (General) Decision to Admit/Date: Jan 30, 2023 Time/Decision to Admit Time: 14:34 Departure-Patient Inst. Referrals: MACY DUMONT DO (PCP/Family) Primary Care Physician YUKO TRUONG MD Jan 30, 2023 14:39
[2023-01-30 14:41] LABS: POTASSIUM 4.1 MMOL/L (3.6-5.0); SODIUM 145 MMOL/L (135-145)
[2023-01-30 14:42] LABS: ALANINE AMINOTRANSFERASE 24 U/L (0-55); ALKALINE PHOSPHATASE 141 U/L (40-136); BILIRUBIN,TOTAL 0.5 MG/DL (0.1-1.0); BUN/CREATININE RATIO 18; CALCIUM 9.1 MG/DL (8.5-10.1); CARBON DIOXIDE 36 MMOL/L (21-32); CHLORIDE 99 MMOL/L (98-107); CREATININE SERUM 0.89 MG/DL (0.60-1.30); GFR ESTIMATED 64; GLUCOSE 131 MG/DL (70-105); MAGNESIUM 2.1 MG/DL (1.6-2.4)
[2023-01-30 14:43] LABS: ALBUMIN 3.6 GM/DL (3.2-4.5); TOTAL PROTEIN 6.5 GM/DL (6.4-8.2)
[2023-01-30] MEDS ORDERED: ENOXAPARIN 40 MG/0.4 ML SYRINGE SC SCH (17:00)
[2023-01-30 17:04] VITALS: BP 138/91
--- NOTE | 2023-01-30 17:10 | Tele-ICU Consult ---
History of Present Illness History of Present Illness Date Seen by Provider: Jan 30, 2023 Time Seen by Provider: 17:09 Date of Admission 01/30/23 Reason for Visit: dyspnea History of Present Illness (Tele-ICU Physician , consultation report as requested by PCP ) Service provided via interactive audio and video telecomPartnered E-CARE system to a patient admitted to ICU bed in [facility]. Patient is seen today due to persistent need of ICU care Available chart/ vitals / labs / Images reviewed Video assessment done using teleICU camera, rest of exam as per RN She is a 82-year-old female with past medical history of morbid obesity, severe COPD on home oxygen, atrial fibrillation status post cardioversion is admitted via emergency room today because of altered mental status, shortness of breath and hypoxia. In the emergency room ABG done which revealed hypercarbic respiratory failure. She is put on a BiPAP ventilation and admitted to the intensive care unit. We are unable to obtain much history from the patient. She is able to tell only the month but not date or anything else. Chest x-ray reviewed and showed bilateral elevated diaphragms with low lung volumes. BNP is elevated. She is known to have a hypertensive cardiovascular disease and was on a diuretics before. EKG today revealed sinus bradycardia with first-degree AV block. Previously she was seen by Dr. Dave who did her cardioversion. Impression 1. Acute and chronic hypercarbic respiratory failure 2. COPD exacerbation 3. Possible mild congestive heart failure decompensated 4. Hypertensive cardiovascular disease. 5. Morbid obesity. Recommendations 1. Continue BiPAP ventilation with 20/10 and 70% FiO2. We will repeat a blood gas in an hour and reevaluate if she would need any intubation 2. Bronchodilator therapy 3. We will give IV Lasix 4. Cardiology consultation 5. DVT prophylaxis. Coordination of care with primary care physician and bedside consultants. I am remotely monitoring this patient from Tele icu station in [place]. I am unable to do the bedside exam, and history/physical and pertinent information is taken from other notes in the computer and bedside staff. Certain portions of this document may have been dictated utilizing voice recognition technology such as SAVO. Inherent to this technology, typographical and grammatical errors may exist. As much as I am diligent to identify and correct to these mistakes, some errors may remain in the document. Critical care time devoted to this patient today is approximately is-35 minutes.- Allergies and Home Medications Allergies Coded Allergies: NKANo Known Allergies (Verified Allergy, Unknown, 12/01/22) Home Medications Amiodarone HCl 200 Mg Tablet, 200 MG PO BID, (Reported) Atorvastatin Calcium 10 Mg Tablet, 10 MG PO DAILY Prescribed by: JUAN JOSE GIBSON on 11/02/22 1138 Bismuth Subsalicylate 262 Mg Tab.chew, 262 MG PO DAILY, (Reported) Cephalexin 500 Mg Tablet, 500 MG PO TID Prescribed by: ADELINE OH on 12/08/22 1219 Docusate Sodium 100 Mg Capsule, 100 MG PO DAILY PRN for CONSTIPATION-1ST LINE, (Reported) Furosemide 40 Mg Tablet, 40 MG PO BID, (Reported) Hydrocodone/Acetaminophen 5 Mg-325 Mg Tablet, 1 TAB PO Q4H PRN for PAIN-MODERATE (5-7) Prescribed by: ADELINE OH on 12/08/22 1219 Hydrocodone/Acetaminophen 5 Mg-325 Mg Tablet, 1 TAB PO Q6H PRN for SEVERE PAIN Prescribed by: FIDELINA MARTÍNEZ on 01/22/23 1426 Metoprolol Succinate 50 Mg Tab.er.24h, 50 MG PO 1200, (Reported) Multivitamin 1 Each Tablet, 1 EACH PO DAILY, (Reported) Potassium Chloride 10 Meq Tab.er.prt, 10 MEQ PO DAILY, (Reported) Timolol Maleate 0.5 % Drops, 1 DROP OS BID, (Reported) Ubidecarenone 100 Mg Capsule, 200 MG PO DAILY, (Reported) Vit A/Vit C/Vit E/Zinc/Copper 2,148-113 Tablet, 1 EACH PO DAILY, (Reported) Past Medical/Social/Family Hx Patient Social History Tobacco Use?: No Use of E-Cig and/or Vaping dev: No Substance use?: No Alcohol Use?: No Pt stated abuse/neglect: No Immunizations Up To Date Influenza Vaccine Up-to-Date: Yes; Up-to-Date First/Initial COVID19 Vaccinat: YES Second COVID19 Vaccination Pete: YES Tetanus Booster (TDap): Unknown Hepatitis A: Yes Hepatitis B: Yes TB Skin Test: None Date of Pneumonia Vaccine: November 04, 2013 Current Status status: No status: No Advance Directives: Yes Advance Directive Location: Home Communicates: Verbally Primary Language: Belgian Preferred Spoken Language: Belgian Is interpretation needed?: No Sensory deficits: Vision impairment, Hearing impairment Implanted or Applied Medical D: Orthopedic hardware Review of Systems Constitutional: see HPI, weakness, other (short of breath) EENTM: see HPI Focused Exam Lactate Level 01/30/23 13:53: Lactic Acid Level 0.96 Height, Weight, BMI Height: '" Weight: lbs. oz. kg; 32.27 BMI Method: Lactic Acid Level Laboratory Tests Test 01/30/23 13:53 Lactic Acid Level 0.96 MMOL/L (0.50-2.00) Exam Exam Patient acknowledged, consented, and participated in this virtual visit which was conducted using real time audio/video Vital Signs Date Time Temp Pulse Resp B/P (MAP) Pulse Ox O2 Delivery O2 Flow Rate FiO2 01/30/23 16:39 49 01/30/23 16:30 97 NIV Bilevel 70 01/30/23 15:30 35.2 57 29 107/52 95 NIV Bilevel 01/30/23 14:30 50.00 01/30/23 13:43 35.2 59 33 112/92 (99) 96 OxyMask 01/30/23 13:43 Nasal Cannula Height & Weight Height: '" Weight: lbs. oz. kg; 32.27 BMI Method: General Appearance: Chronically ill, Obese Capillary Refill: Less Than 3 Seconds Results Lab Laboratory Tests 01/30/23 13:53 Assessment/Plan Assessment/Plan as above Critical Care: Critically Ill Patient Time spent with patient (mins): 35 TIM ARREGUIN MD Jan 30, 2023 17:10
[2023-01-30] MEDS ORDERED: FUROSEMIDE INJECTION 40 MG/4 ML VIAL IVP NR (17:15)
[2023-01-30 17:50] LABS: ABG BASE EXCESS 11.5 MMOL/L (-2.5-2.5); ABG OXYGEN SATURATION 100 % (94-100); ABG PO2 118 MMHG (79-93)
[2023-01-30 18:06] LABS: ABG PCO2 78 MMHG (35-45); ABG TCO2 40.8 MMOL/L (21.0-31.0); ALLENS TEST YES-POS
[2023-01-30 18:07] LABS: INSPIRED O2 50%; PATIENT TEMP 36; VENTILATOR NO
[2023-01-30 18:41] VITALS: BP 124/74
[2023-01-30] MEDS: DOCUSATE SODIUM 100 MG CAPSULE PO SCH (20:27)
[2023-01-30 21:28] LABS: ABG BASE EXCESS 13.1 MMOL/L (-2.5-2.5); ABG OXYGEN SATURATION 99 % (94-100); ABG PO2 97 MMHG (79-93)
[2023-01-30 21:32] LABS: ABG PCO2 78 MMHG (35-45); ABG PH 7.32 (7.37-7.43); ABG TCO2 41.9 MMOL/L (21.0-31.0)
[2023-01-30 21:33] LABS: ALLENS TEST YES-POS; INSPIRED O2 70%; VENTILATOR NO
[2023-01-30 22:16] VITALS: BP 128/83
[2023-01-31 02:53] VITALS: BP 124/73
[2023-01-31 04:06] LABS: BASOPHILS % (AUTO) 0 % (0-10); EOSINOPHILS % (AUTO) 0 % (0-10); HEMATOCRIT 37 % (35-52); HEMOGLOBIN 11.5 g/dL (11.5-16.0); LYMPHOCYTES # (AUTO) 0.7 10^3/uL (1.0-4.0); LYMPHOCYTES % (AUTO) 9 % (12-44); MEAN CORPUSCULAR HEMOGLOBIN 32 pg (25-34); MEAN CORPUSCULAR HGB CONC 31 g/dL (32-36); MEAN CORPUSCULAR VOLUME 102 fL (80-99); MEAN PLATELET VOLUME 9.6 fL (9.0-12.2); MONOCYTES # (AUTO) 0.6 10^3/uL (0.0-1.0); MONOCYTES % (AUTO) 8 % (0-12); NEUTROPHILS # (AUTO) 6.1 10^3/uL (1.8-7.8); NEUTROPHILS % (AUTO) 81 % (42-75); PLATELET COUNT 277 10^3/uL (130-400); WHITE BLOOD COUNT 7.5 10^3/uL (4.3-11.0)
[2023-01-31 04:18] LABS: CALCIUM 8.8 MG/DL (8.5-10.1)
[2023-01-31 04:22] LABS: CREATININE SERUM 0.76 MG/DL (0.60-1.30)
[2023-01-31 04:25] LABS: MAGNESIUM 1.8 MG/DL (1.6-2.4)
[2023-01-31 05:36] LABS: ABG BASE EXCESS 14.3 MMOL/L (-2.5-2.5); ABG OXYGEN SATURATION 34 % (94-100)
[2023-01-31 05:42] LABS: ALLENS TEST YES-POS; INSPIRED O2 40%; VENTILATOR NO
[2023-01-31 05:43] LABS: ABG PCO2 85 MMHG (35-45); ABG PH 7.31 (7.37-7.43); ABG PO2 26 MMHG (79-93); ABG TCO2 43.7 MMOL/L (21.0-31.0)
[2023-01-31] MEDS: POTASSIUM CL 10MEQ/50ML IVPB 50 ML IV SCH (05:53)
[2023-01-31] MEDS: POTASSIUM CHLORIDE 20 MEQ TABLET PO SCH (05:54)
[2023-01-31] MEDS: MAGNESIUM 1 GM/100 ML IVPB 100 ML IV SCH (05:54)
[2023-01-31 07:07] VITALS: BP 128/95
[2023-01-31] MEDS ORDERED: methylPREDNISolone INJ 125 MG VIAL IVP NR (08:30)
[2023-01-31 08:54] LABS: ABG BASE EXCESS 13.5 MMOL/L (-2.5-2.5); ABG OXYGEN SATURATION 98 % (94-100); ABG PCO2 65 MMHG (35-45); ABG PH 7.39 (7.37-7.43); ABG PO2 77 MMHG (79-93)
[2023-01-31 09:15] LABS: ABG TCO2 41.3 MMOL/L (21.0-31.0); INSPIRED O2 40% BIPAP; PATIENT TEMP 36; VENTILATOR NO
[2023-01-31 10:22] VITALS: BP 129/92
[2023-01-31] MEDS: DOCUSATE SODIUM 100 MG CAPSULE PO SCH ×2 (10:34→20:32)
--- NOTE | 2023-01-31 10:44 | Tele-ICU Progress Note ---
Subjective Date Seen by a Provider: Jan 31, 2023 Time Seen by a Provider: 10:44 Subjective/Events-last exam (Tele-ICU Physician , Progress Note ) Service provided via interactive audio and video telecommunications E-CARE system to a patient admitted to ICU bed in [facility]. Patient is seen today due to persistent need of ICU care Available chart/ vitals / labs / Images reviewed Video assessment done using teleICU camera, rest of exam as per RN Discussed with RN Events overnight : Afebrile hemodynamically stable Respiratory - I/O = Drips: Pressors- no Hospital course: (01-30) 82 y/o F - Acute on Chronic Respiratory Failure w/ Hypoxia and Hypercapnia,BiPAP ventilation with 20/10 and 70% FiO2 01/31 - off BIPAP , AAO x3 A/P 1. Acute and chronic hypercarbic respiratory failure - placed on BIPAP in ER - CHF vs AECOPD -received lasixz and steroids in ER - better now , OFF BIPAP AAO COPD exacerbation? prm nebs , no steroids Possible congestive heart failure -decompensated - resume home meds - follow prn lasix Morbid obesity., home o2 2 L Lines : PEriph , (Central Line Necessity Reviewed) Collins: + OG: Nutrition: po Analgesia: Anxiety/ delirium VTE Prophylaxis: gauri Stress Ulcer Prophylaxis: na Plans in collaboration with bedside consultants and IM MDs. Discussed with RN to reach out if any questions or concerns Case and care daily discussed on multidisciplinary rounds ( RN, PharmD, Shot Polisher And Inspector , Respiratory Therapy, putty worker ) A total of 31 minutes of critical care time was devoted to this patient today, required to treat and/or prevent further deterioration of critical care condition ( as above ) . Sepsis Event Evaluation Height, Weight, BMI Height: '" Weight: lbs. oz. kg; 32.27 BMI Method: Focused Exam Lactate Level 01/30/23 13:53: Lactic Acid Level 0.96 Exam Exam Patient acknowledged, consented, and participated in this virtual visit which was conducted using real time audio/video Vital Signs Date Time Temp Pulse Resp B/P (MAP) Pulse Ox O2 Delivery O2 Flow Rate FiO2 01/31/23 10:22 36.7 63 97 01/31/23 10:00 63 23 129/92 (104) 97 Nasal Cannula 4.00 01/31/23 09:30 Nasal Cannula 4.00 01/31/23 09:00 51 19 114/84 (94) 97 Nasal Cannula 4.00 01/31/23 08:00 100 NIV Bilevel 40 01/31/23 08:00 60 18 145/90 (108) 98 NIV Bilevel 40.00 01/31/23 07:55 36.7 01/31/23 07:13 53 01/31/23 07:07 52 21 99 40.00 01/31/23 07:00 53 20 128/95 (106) 98 NIV Bilevel 40.00 01/31/23 06:00 53 19 120/79 (97) 100 NIV Bilevel 40.00 01/31/23 05:00 53 19 107/68 (83) 99 NIV Bilevel 40.00 01/31/23 04:00 100 NIV Bilevel 40 01/31/23 04:00 57 13 106/89 (98) 98 NIV Bilevel 40.00 01/31/23 03:27 NIV Bilevel 40.00 01/31/23 03:00 54 17 140/85 (112) 98 NIV Bilevel 45.00 01/31/23 02:53 54 20 98 45.00 01/31/23 02:00 54 14 124/73 (90) 97 NIV Bilevel 45.00 01/31/23 01:00 56 18 132/91 (106) 98 NIV Bilevel 45.00 01/31/23 01:00 56 01/31/23 00:00 54 18 105/72 (84) 99 NIV Bilevel 45.00 01/30/23 23:59 100 NIV Bilevel 45 01/30/23 23:00 56 16 113/70 (84) 99 NIV Bilevel 45.00 01/30/23 22:20 NIV Bilevel 45.00 01/30/23 22:16 56 19 99 50.00 01/30/23 22:00 56 18 103/67 (79) 98 NIV Bilevel 50.00 01/30/23 21:00 50 21 99/71 (80) 100 NIV Bilevel 50.00 01/30/23 20:04 34.9 01/30/23 20:00 100 NIV Bilevel 50 01/30/23 20:00 46 18 109/67 (81) 96 NIV Bilevel 50.00 01/30/23 19:00 46 01/30/23 19:00 NIV Bilevel 50.00 01/30/23 19:00 46 19 104/68 (80) 97 NIV Bilevel 50.00 01/30/23 18:41 46 19 100 50.00 01/30/23 18:00 40 17 133/83 (100) 100 NIV Bilevel 70.00 01/30/23 17:04 51 28 92 70.00 01/30/23 17:00 43 18 107/67 (80) 100 NIV Bilevel 70.00 01/30/23 16:39 49 01/30/23 16:30 97 NIV Bilevel 70 01/30/23 16:30 65 17 126/74 (91) 95 NIV Bilevel 70.00 01/30/23 15:30 35.2 57 29 107/52 95 NIV Bilevel 01/30/23 14:30 50.00 01/30/23 13:43 35.2 59 33 112/92 (99) 96 OxyMask 01/30/23 13:43 Nasal Cannula I & O 01/31/23 07:00 Intake Total 0 ml Output Total 1400 ml Balance -1400 ml Height & Weight Height: '" Weight: lbs. oz. kg; 32.27 BMI Method: General Appearance: Chronically ill, Obese Capillary Refill: Less Than 3 Seconds Gastrointestinal: normal bowel sounds, non tender, other (Old ecchymosis of right upper quadrant abdominal wall) Results Lab Laboratory Tests 01/30/23 13:53 01/31/23 03:55 Assessment/Plan Assessment/Plan 1 ANDREA MESSINA MD Jan 31, 2023 10:44
[2023-01-31] MEDS ORDERED: RT-Ipratropium/Albuterol NEB 3 ML VIAL INH PRN (10:45)
[2023-01-31] MEDS ORDERED: POTA-185 PO (12:14)
[2023-01-31] MEDS ORDERED: ASCO500T75 PO (12:14)
[2023-01-31] MEDS ORDERED: ACET-2267 PO (12:14)
[2023-01-31] MEDS ORDERED: UBID100C17 PO (12:14)
[2023-01-31] MEDS ORDERED: DIPH25TA65 PO (12:14)
[2023-01-31] MEDS ORDERED: RIVA20TA PO (12:14)
[2023-01-31] MEDS ORDERED: VERA120T74 PO (12:14)
[2023-01-31] MEDS ORDERED: DOCU-26 PO (12:14)
[2023-01-31] MEDS ORDERED: TRAM50TA3 PO (12:14)
[2023-01-31] MEDS ORDERED: VIT-31 PO (12:14)
[2023-01-31] MEDS ORDERED: AMIO200T65 PO (12:14)
[2023-01-31] MEDS ORDERED: AMOX1TAB11 PO (12:14)
[2023-01-31] MEDS ORDERED: PREN-8 PO (12:59)
[2023-01-31] MEDS: RT-Ipratropium/Albuterol NEB 3 ML VIAL INH SCH ×3 (14:14→22:02)
--- NOTE | 2023-01-31 16:20 | History & Physical-Hospitalist ---
History of Present Illness HPI/Chief Complaint Mela Villavicencio is an 82 year old female with PMH COPD on home oxygen, HTN, HLD, CHF, DARLING, AFib, who presented with shortness of breath. She denies fevers and chills. She denies cough. She is feeling hungry. She wants biscuits and gravy. She denies abdominal pain. She denies nausea and vomiting.. She does not use CPAP or BiPAP. She had a recent fall and was prescribed pain medication. Source: patient Exam Limitations: no limitations Date Seen 01/31/23 Time Seen by a Provider: 09:00 Attending Physician Ryan Stockton DO PCP Admitting Physician: Bunny Smith MD Attending Physician: Bunny Smith MD Referring Physician Date of Admission Jan 30, 2023 at 16:15 Home Medications & Allergies Home Medications Reviewed patient Home Medication Reconciliation performed by pharmacy medication reconciliations emergency response technician and/or nursing. Patients Allergies have been reviewed. Allergies Allergies Coded Allergies NKANo Known Allergies (Verified Allergy, Unknown, 12/01/22) Past Lvzivar-Zntolv-Ybxloi Hx Patient Social History Tobacco Use?: No Use of E-Cig and/or Vaping dev: No Substance use?: No Alcohol Use?: No Pt feels they are or have been: No Immunizations Up To Date Date of Influenza Vaccine: Mar 19, 2020 First/Initial COVID19 Vaccinat: YES Second COVID19 Vaccination Pete: YES Tetanus Booster (TDap): Unknown Hepatitis A: Yes Hepatitis B: Yes Date of Pneumonia Vaccine: November 04, 2013 Seasonal Allergies Seasonal Allergies: No Current Status status: No status: No Advance Directives: Yes Advance Directive Location: Home Communicates: Verbally Primary Language: Italian Preferred Spoken Language: Italian Is interpretation needed?: No Sensory deficits: Vision impairment, Hearing impairment Implanted or Applied Medical D: Orthopedic hardware Past Medical History Surgeries: Hysterectomy, Lumpectomy, Oophorectomy, Orthopedic Asthma, Sleep Apnea Currently Using CPAP: Yes Currently Using BIPAP: No Atrial Fibrillation, High Cholesterol, Hypertension Sexually Transmitted Disease: No Bladder Infection Hepatitis Arthritis Loss of Vision: Bilateral Hearing Impairment: Hard of Hearing Breast, Melanoma, Uterine What Type of Treatment Did You: Chemotherapy, Surgical Intervention Blood Disorders: No Adverse Reaction/Blood Tranf: No Family Medical History No Pertinent Family Hx Review of Systems Constitutional: weakness Respiratory: short of breath Cardiovascular: no symptoms reported Gastrointestinal: no symptoms reported Physical Exam Physical Exam Vital Signs Vital Signs - First Documented 01/30/23 01/30/23 01/30/23 13:43 14:30 16:30 Temp 35.2 Pulse 59 Resp 33 B/P (MAP) 112/92 (99) Pulse Ox 96 O2 Delivery Nasal Cannula O2 Flow Rate 50.00 FiO2 70 Capillary Refill : Less Than 3 Seconds Height, Weight, BMI Height: '" Weight: lbs. oz. kg; 32.27 BMI Method: General Appearance: No Apparent Distress, Obese HEENT: PERRL/EOMI, Pharynx Normal Neck: Normal Inspection, Supple Respiratory: No Respiratory Distress, Decreased Breath Sounds Cardiovascular: Regular Rate, Rhythm, No Murmur Gastrointestinal: Normal Bowel Sounds, Non Tender, Soft Extremity: Normal Inspection, No Pedal Edema Neurologic/Psychiatric: Alert, Oriented x3, Normal Mood/Affect Skin: Normal Color, Warm/Dry Results Results/Procedures Labs Laboratory Tests 01/30/23 13:53 01/31/23 03:55 Patient resulted labs reviewed. Imaging: Reviewed Imaging Report Assessment/Plan Admission Diagnosis Acute on chronic respiratory failure with hypoxia and hypercapnia Admission Status: Inpatient Order (span 2 midnights) Reason for Inpatient Admission: Respiratory failure Assessment and Plan Acute on chronic respiratory failure with hypoxia and hypercapnia COPD exacerbation ABG with acute hypercapnia Required BiPAP overnight CO2 improving Social work consulted for home BiPAP Steroids MAT protocol Supplemental oxygen as needed Not septic Blood cultures with gram positive cocci, likely contaminants Recent fall Hematoma Debility PT/OT HTN HLD CHF DARLING AFib Continue home meds as able Diagnosis/Problems Diagnosis/Problems (1) Acute on chronic respiratory failure with hypoxia and hypercapnia Status: Acute (2) CO2 narcosis Status: Acute (3) COPD exacerbation Status: Acute (4) HTN (hypertension) Status: Chronic (5) HLD (hyperlipidemia) Status: Chronic (6) Obesity Status: Chronic (7) PAF (paroxysmal atrial fibrillation) Status: Chronic BUNNY SMITH MD Jan 31, 2023 16:20
[2023-01-31 16:26] VITALS: BP 118/67
[2023-01-31] MEDS: FUROSEMIDE 40 MG TABLET PO SCH (17:56)
[2023-01-31 18:06] LABS: CLARITY,URINE CLEAR; COLOR,URINE YELLOW; GLUCOSE, URINE (UA) NEGATIVE (NEGATIVE); KETONES,URINE NEGATIVE (NEGATIVE); PROTEIN,URINE NEGATIVE (NEGATIVE)
[2023-01-31 18:07] LABS: AMORPHOUS SEDIMENT,UR RARE AMOR URATES /LPF; BACTERIA,URINE TRACE /HPF; BILIRUBIN,URINE NEGATIVE (NEGATIVE); LEUKOCYTE ESTERASE ,URINE TRACE (NEGATIVE); NITRITE,URINE NEGATIVE (NEGATIVE)
[2023-01-31 18:08] LABS: URINE OTHER TRANS EPI 0-2 /HPF
[2023-01-31 19:29] VITALS: BP 123/65
[2023-01-31] MEDS: TIMOLOL MALEATE 0.5% 5 ML (TIMOPTIC) BTL OU SCH (20:32)
[2023-01-31] MEDS: VERAPAMIL SR 240 MG (CALAN SR) TAB PO SCH (20:32)
[2023-01-31] MEDS: AMIODARONE 200 MG TABLET PO SCH (20:32)
[2023-01-31] MEDS ORDERED: NON-FORMULARY MEDICATION 1 EA EA (Verapamil HCl (Verapamil ER) 120 MG) PO SCH (21:00)
[2023-01-31 23:33] VITALS: BP 120/76
[2023-02-01] VITALS (8 sets, daily range): BP systolic 110–138; BP diastolic 55–71
[2023-02-01] MEDS: RT-Ipratropium/Albuterol NEB 3 ML VIAL INH SCH ×4 (02:10→13:09)
[2023-02-01 05:12] LABS: BASOPHILS % (AUTO) 0 % (0-10); EOSINOPHILS % (AUTO) 0 % (0-10); HEMATOCRIT 33 % (35-52); LYMPHOCYTES # (AUTO) 0.8 10^3/uL (1.0-4.0); LYMPHOCYTES % (AUTO) 9 % (12-44); MEAN CORPUSCULAR HEMOGLOBIN 31 pg (25-34); MEAN CORPUSCULAR HGB CONC 31 g/dL (32-36); MEAN CORPUSCULAR VOLUME 101 fL (80-99); MEAN PLATELET VOLUME 9.5 fL (9.0-12.2); MONOCYTES # (AUTO) 0.7 10^3/uL (0.0-1.0); MONOCYTES % (AUTO) 7 % (0-12); NEUTROPHILS # (AUTO) 7.6 10^3/uL (1.8-7.8); NEUTROPHILS % (AUTO) 83 % (42-75); PLATELET COUNT 303 10^3/uL (130-400); WHITE BLOOD COUNT 9.2 10^3/uL (4.3-11.0)
[2023-02-01 05:22] LABS: POTASSIUM 4.4 MMOL/L (3.6-5.0)
[2023-02-01 05:23] LABS: CALCIUM 8.9 MG/DL (8.5-10.1)
[2023-02-01 05:27] LABS: CREATININE SERUM 0.86 MG/DL (0.60-1.30)
[2023-02-01 05:29] LABS: MAGNESIUM 1.9 MG/DL (1.6-2.4)
[2023-02-01] MEDS: POTASSIUM CL 10MEQ/50ML IVPB 50 ML IV SCH (05:53)
[2023-02-01] MEDS: POTASSIUM CHLORIDE 20 MEQ TABLET PO SCH (05:54)
[2023-02-01] MEDS: FUROSEMIDE 40 MG TABLET PO SCH (05:54)
[2023-02-01] MEDS: MAGNESIUM 1 GM/100 ML IVPB 100 ML IV SCH ×3 (05:55→06:30)
[2023-02-01] MEDS ORDERED: predniSONE 20 MG TAB PO SCH (07:00)
[2023-02-01] MEDS ORDERED: POTASSIUM CHLORIDE 10 MEQ TABLET PO SCH (07:00)
[2023-02-01] MEDS: TIMOLOL MALEATE 0.5% 5 ML (TIMOPTIC) BTL OU SCH (08:16)
[2023-02-01] MEDS: VERAPAMIL SR 240 MG (CALAN SR) TAB PO SCH (08:17)
[2023-02-01] MEDS: AMIODARONE 200 MG TABLET PO SCH (08:17)
[2023-02-01] MEDS: DOCUSATE SODIUM 100 MG CAPSULE PO SCH (08:17)
--- NOTE | 2023-02-01 08:22 | Diagnostic Imaging Report ---
EXAMINATION: Chest 1 view HISTORY: Heart failure COMPARISON: 01/30/2023 FINDINGS: There is a small left pleural effusion with overlying atelectasis. There is mild edema. Heart is enlarged. No pneumothorax. IMPRESSION: 1. Small left pleural effusion with overlying atelectasis. Dictated by: Dictated on workstation # [id number]
[2023-02-01] MEDS ORDERED: RIVAROXABAN 20 MG TABLET (XARELTO) PO SCH (12:00)
--- NOTE | 2023-02-01 13:05 | Occupational Therapy Eval ---
OT Evaluation-General/PLF Medical Diagnosis Admission Date Jan 30, 2023 at 16:15 Medical Diagnosis: respiratory failure Onset Date: Jan 30, 2023 Therapy Diagnosis Therapy Diagnosis: SOA, general weakness Precautions Precautions/Isolations: Standard Precautions Weight Bear Status Weight Bearing Restriction: Full Weight Bearing Referral Referral Reason: Activity Tolerance, Self Care, Evaluation/Treatment Medical History Additional Medical History 82 year old female with PMH COPD on home oxygen, HTN, HLD, CHF, DARLING, AFib, who presented with shortness of breath. Reviewed History: Yes Social History Home: Multilevel Current Living Status: Children (autistic grandson) Entry Into Home: Stairs With Railing Steps Into Home: 3 Steps Inside Home: 10 (bedrooms on second floor) ADL-Prior Level of Function SCALE: Activities may be completed with or without assistive devices. 8-Sjnrmjtwby-fgksbpe completes the activity by him/herself with no assistance from a helper. 5-Set-up or Clean-up Assistance-helper sets up or cleans up; patient completes activity. [place] assists only prior to or following the activity. 4-Supervision or Touching Assistance-helper provides verbal cues and/or touching/steadying and/or contact guard assistance as patient completes activity. Assistance may be provided throughout the activity or intermittently. 3-Partial/Moderate Assistance-helper does LESS THAN HALF the effort. [place] lifts, holds or supports trunk or limbs, but provides less than half the effort. 2-Substantial/Maximal Assistance-helper does MORE THAN HALF the effort. [place] lifts or holds trunk or limbs and provides more than half the effort. 6-Kocusqzax-rgicva does ALL the effort. Patient does none of the effort to complete the activity. Or, the assistance of 2 or more helpers is required for the patient to complete the activity. If activity was not attempted, code reason: 7-Patient Refused. 9-Not Applicable-not attempted and the patient did not perform the activity befo re the current illness, exacerbation or injury. 10-Not Attempted due to Environmental Limitations-(lack of equipment, weather re straints, etc.). 88-Not Attempted due to Medical Conditions or Safety Concerns. ADL PLOF Comments Performs ADL w/ 4ww/seat, 02 at home, increased use of 02 over last few weeks Self Care: Independent Functional Cognition: Independent Drive Self: No OT Current Status Subjective Reports soreness on back d/t falls at home, multiple bruises on back Mental Status/Objective Patient Orientation: Person, Place, Time, Situation Attachments: Oxygen Current Glasses/Contacts: Yes Upper Extremity ROM BUE ROM WFLS Upper Extremity Coordination Some hand tremors w/ FMC however patient is able to perform Upper Extremity Strength -4/5 90% 02 w/ 6 liters NC w/ ambulation. REST period 5 liter NC 92% . OT request respiratory therapy consult for walk test ADL-Treatment ADL-Current Grand daughter in room and reports that the patient bear crawls up the stairs Eating (QC): 6 Oral Hygiene (QC): 5 Shower/Bathe Self (QC): 7 Upper Body Dressing (QC): 4 (Additional hospital gown used as robe) Lower Body Dressing (QC): 5 On/Off Footwear (QC): 5 Toileting Hygiene (QC): 5 Education OT Patient Education: Correct positioning, Energy conservation, Exercise program, Instructions to caregiver, Modified ADL techniques, Progress toward Goal/Update tx plan, Purpose of tx/functional activities, Reviewed precautions, Rehab process, Safety issues, Transfer techniques, Use of adapted equipment Teaching Recipient: Patient, Family Teaching Methods: Demonstration, Discussion Response to Teaching: Verbalize Understanding, Reinforcement Needed OT Mcfp Goals Mcfp Goals Eating (QC): 6 Oral Hygiene (QC): 6 Toileting Hygiene (QC): 6 Shower/Bathe Self (QC): 6 Upper Body Dressing (QC): 6 Lower Body Dressing (QC): 6 On/Off Footwear (QC): 6 1=Demonstrate adherence to instructed precautions during ADL tasks. 2=Patient will verbalize/demonstrate understanding of assistive devices/modifications for ADL. 3=Patient will improve strength/tolerance for activity to enable patient to perform ADL's. OT Education/Plan Problem List/Assessment Assessment: Decreased Activ Tolerance, Impaired Self-Care Skills Discharge Recommendations Plan/Recommendations: Continue POC Therapy Discharge Recommendati: Post Acute OT Treatment Plan/Plan of Care Treatment,Training & Education: Yes Patient would benefit from OT for education, treatment and training to promote independence in ADL's, mobility, safety and/or upper extremity function for ADL's. Plan of Care: ADL Retraining, Functional Mobility, Group Exercise/Act as Ind, UE Funct Exercise/Act Treatment Duration: Feb 06, 2023 Frequency: 3 times per week (3-5 times per week) Estimated Hrs Per Day: .25 hour per day Agreement: Yes Rehab Potential: Good Time Start Time: 09:20 Stop Time: 09:49 DATE: Feb 01, 2023 Total Time Billed (hr/min): 29 Billed Treatment Time EVM, ADL 29 min JONNATHAN GARCIA OT Feb 01, 2023 13:05
--- NOTE | 2023-02-01 13:07 | Progress Note - Hospitalist ---
Subjective HPI/CC On Admission Date Seen by Provider: Feb 01, 2023 Time Seen by Provider: 10:30 Mela Villavicencio is an 82 year old female with PMH COPD on home oxygen, HTN, HLD, CHF, DARLING, AFib, who presented with shortness of breath. She denies fevers and chills. She denies cough. She is feeling hungry. She wants biscuits and gravy. She denies abdominal pain. She denies nausea and vomiting.. She does not use CPAP or BiPAP. She had a recent fall and was prescribed pain medication. Subjective/Events-last exam She is feeling well this morning. She wore her BiPAP for part of the night. She has no complaints. Focused Exam Lactate Level 01/30/23 13:53: Lactic Acid Level 0.96 Objective Exam Vital Signs Vital Signs Date Time Temp Pulse Resp B/P (MAP) Pulse Ox O2 Delivery O2 Flow Rate FiO2 02/01/23 11:22 37.0 58 18 113/59 (77) 95 Nasal Cannula 3.00 01/31/23 12:00 40 Capillary Refill : Less Than 3 Seconds General Appearance: No Apparent Distress, Obese Neck: Normal Inspection, Supple Respiratory: Lungs Clear, No Respiratory Distress Cardiovascular: Regular Rate, Rhythm, No Murmur Gastrointestinal: Normal Bowel Sounds, Soft Extremity: Normal Inspection, No Pedal Edema Neurologic/Psychiatric: Alert, Normal Mood/Affect Skin: Normal Color, Warm/Dry Results/Procedures Lab Laboratory Tests 02/01/23 05:05 Patient resulted labs reviewed. Imaging: Reviewed Imaging Report Assessment/Plan Assessment and Plan Assess & Plan/Chief Complaint Acute on chronic respiratory failure with hypoxia and hypercapnia COPD exacerbation Repeat chest xray with small effusion BiPAP at night Social work consulted, home BiPAP set up Continue steroids MAT protocol Supplemental oxygen as needed Recent fall Hematoma Debility PT/OT HTN HLD CHF DARLING AFib Continue home meds as able Diagnosis/Problems Diagnosis/Problems (1) Acute on chronic respiratory failure with hypoxia and hypercapnia Status: Acute (2) CO2 narcosis Status: Acute (3) COPD exacerbation Status: Acute (4) HTN (hypertension) Status: Chronic (5) HLD (hyperlipidemia) Status: Chronic (6) Obesity Status: Chronic (7) PAF (paroxysmal atrial fibrillation) Status: Chronic BUNNY SMITH MD Feb 01, 2023 13:07
[2023-02-01 13:14] LABS: ABG BASE EXCESS 13.3 MMOL/L (-2.5-2.5); ABG OXYGEN SATURATION 99 % (94-100); ABG PCO2 67 MMHG (35-45); ABG PH 7.38 (7.37-7.43); ABG PO2 96 MMHG (79-93)
[2023-02-01] MEDS ORDERED: HOLD METFORMIN - RECEIVED CONTRAST 20 ML VIAL IV SCH (13:15)
[2023-02-01] MEDS ORDERED: IOHEXOL 350 MG/ML 100 ML (OMNIPAQUE 350) VIAL IV ONE (13:15)
[2023-02-01] MEDS ORDERED: NS 100 ML (IVPB) BAG IV ONE (13:15)
[2023-02-01 13:20] LABS: INSPIRED O2 40%; VENTILATOR NO
--- NOTE | 2023-02-01 13:52 | Diagnostic Imaging Report ---
PROCEDURE: CT angiography of the chest with contrast. TECHNIQUE: Multiple contiguous axial images were obtained through the chest after uneventful bolus administration of intravenous contrast. 3D reconstructed CTA MIP acquisitions were also performed. Auto Exposure Controls were utilized during the CT exam to meet ALARA standards for radiation dose reduction. INDICATION: Apnea. COMPARISON: None FINDINGS: No abnormal intraluminal filling defect is seen within the pulmonary arteries to the 1st subsegmental divisions. Note is made of enlargement of the main portal arterial trunk. It measures 4 cm in diameter. There is also pronounced tortuosity to the abdominal aorta and its major arch vessels. By NASCET criteria, there is no focal significant stenosis. There is no evidence of dissection or aneurysm. Heart is moderately enlarged. There is also prominent pericardial fat. No large pericardial effusion is seen. Mild calcified coronary atherosclerosis is noted. No pathologically enlarged or morphologically abnormal adenopathy is seen within the mediastinum, brina, nor axilla. Note is made of hypodense right thyroid lesion. Area in question measures 1.9 x 2.7 cm. Small bilateral pleural effusions are noted. There is moderate partial atelectasis of the bilateral lower lobes. No pneumothorax is seen. Aerated portions of the lung show no suspicious pulmonary nodule or mass. Osseous structures show no acute abnormalities. No lytic or blastic bony lesions are seen. Included portions of the upper abdomen show macronodular appearance to the external contour of the liver suggestive of underlying cirrhotic change. IMPRESSION: 1. No pulmonary embolus. 2. Enlargement of main pulmonary arterial trunk. Findings can be seen with underlying pulmonary arterial hypertension. 3. Cardiomegaly. 4. Small bilateral effusions with partial atelectasis of the bilateral lower lobes. 5. Right adrenal nodule. Correlation with dedicated thyroid sonogram is advised when clinically appropriate. 6. Probable cirrhosis of the liver. Dictated by: Dictated on workstation # [id number]
--- NOTE | 2023-02-01 14:16 | Physical Therapy Evaluation ---
PT Evaluation-General Medical Diagnosis Admission Date Jan 30, 2023 at 16:15 Medical Diagnosis: respiratory failure Onset Date: Jan 30, 2023 Therapy Diagnosis Therapy Diagnosis: Gait Deficit Precautions Precautions/Isolations: Fall Prevention, Standard Precautions Weight Bear Status Right Lower Extremity: Right Full Weight Bearing Left Lower Extremity: Left Full Weight Bearing Referral Physician: Dr. White Reason for Referral: Evaluation/Treatment Medical History Reviewed History: Yes Social History Home: Multilevel Current Living Status: Children (autistic grandson) Entry Into Home: Stairs With Railing PT Steps Into Home: 3 PT Steps Inside Home: 10 (bedrooms on second floor) Prior Prior Level of Function SCALE: Activities may be completed with or without assistive devices. 9-Qwwunudbur-godygcp completes the activity by him/herself with no assistance from a helper. 5-Set-up or Clean-up Assistance-helper sets up or cleans up; patient completes activity. [place] assists only prior to or following the activity. 4-Supervision or Touching Assistance-helper provides verbal cues and/or touching/steadying and/or contact guard assistance as patient completes activity. Assistance may be provided throughout the activity or intermittently. 3-Partial/Moderate Assistance-helper does LESS THAN HALF the effort. [place] lifts, holds or supports trunk or limbs, but provides less than half the effort. 2-Substantial/Maximal Assistance-helper does MORE THAN HALF the effort. [place] lifts or holds trunk or limbs and provides more than half the effort. 1-Wmdsrwwlr-lzgwrv does ALL the effort. Patient does none of the effort to complete the activity. Or, the assistance of 2 or more helpers is required for the patient to complete the activity. If activity was not attempted, code reason: 7-Patient Refused. 9-Not Applicable-not attempted and the patient did not perform the activity before the current illness, exacerbation or injury. 10-Not Attempted due to Environmental Limitations-(lack of equipment, weather restraints, etc.). 88-Not Attempted due to Medical Conditions or Safety Concerns. Bed Mobility: 6 Transfers (B,C,W/C): 6 Gait: 6 Stairs: 6 Indoor Mobility (Ambulation): Independent Stairs: Independent Prior Devices Use: Walker Patient reports she is independent with stairs in her split level home, however granddaughter reports patient has been crawling up and down the stairs so as not to fall. PT Evaluation-Current Subjective Patient lying in bed upon PT arrival, agreeable to treatment. patient rates p ain at 0/10 currently. Objective Patient Orientation: Person, Place Attachments: Oxygen, [place] Catheter, IV ROM/Strength ROM Lower Extremities WFLs all planes BLEs Strength Lower Extremities 3+/5 BLEs all planes Sensory Vision: Wears Glasses Hearing: Functional Sensation Right Lower Extremit: Intact Sensation Left Lower Extremity: Intact Transfers Roll Left to Right (QC): 3 Sit to Lying (QC): 3 Lying to Sitting/Side of Bed(Q: 3 Sit to Stand (QC): 3 Gait Does the Patient Walk?: Yes Mode of Locomotion: Walk Anticipated Mode of Locomotion: Walk Walk 10 feet (QC): 3 Walk 50 ft with 2 Turns(QC): 3 Distance: 120' Gait Assistive Device: FWW Balance Sitting Static: Fair Sitting Dynamic: Fair Standing Static: Fair Standing Dynamic: Fair Assessment/Needs Patient tolerated treatment fair. She performs all bed mobility and transfers with Min a. Patient ambulates 120 feet with FWW, with min A and verbal cues for safety, posture, progression and conservation of energy. Patient bed post treatment with all needs met, nursing notified, call light in hand and gran tamar in the room. Rehab Potential: Fair PT Detention Goals Detention Goals PT Detention Goals Time Frame: Mar 18, 2023 Roll Left & Right (QC): 6 Sit to Lying (QC): 6 Lying-Sitting on Side/Bed(QC): 6 Sit to Stand (QC): 6 Chair/Ppf-tj-Sfunz Xfer(QC): 6 Toilet Transfer (QC): 6 Does the Patient Walk: Yes Walk 10 feet (QC): 6 Walk 50ft with 2 Turns (QC): 6 Walk 150 ft (QC): 4 1 Step (curb) (QC): 4 4 Steps (QC): 4 12 Steps (QC): 4 PT Plan Problem List Problem List: Activity Tolerance, Functional Strength, Safety, Balance, Gait, Transfer, Bed Mobility, ROM Treatment/Plan Treatment Plan: Continue Plan of Care Treatment Plan: Bed Mobility, Education, Functional Activity Ana, Functional Strength, Group Therapy, Gait, Safety, Therapeutic Exercise, Transfers Treatment Duration: Mar 18, 2023 Frequency: 6 times per week Estimated Hrs Per Day: .25 hour per day Safety Risks/Education Patient Education: Gait Training, Transfer Techniques Teaching Recipient: Patient Teaching Methods: Demonstration, Discussion Response to Teaching: Verbalize Understanding, Return Demonstration Time Time In: 930 Time Out: 948 DATE: Feb 01, 2023 Total Billed Treatment Time: 18 Total Billed Treatment Visit, KRISTIN MILLER PT Feb 01, 2023 14:16
[2023-02-01] MEDS ORDERED: PRED10TA22 PO (14:26)
--- NOTE | 2023-02-01 14:36 | Discharge Summary ---
Discharge Summary Instructions for Patient Via [employer], Assessment/Instructions See instructions Physician to follow Patient: Mahin Discharge Diet for Home: No Restrictions Hospital Course Date of Admission: Jan 30, 2023 at 16:15 Admission Diagnosis : Acute on chronic respiratory failure with hypoxia and hypercapnia Family Physician/Provider: Ryan Stockton DO Date of Discharge: 02/01/23 Discharge Diagnosis: Acute on chronic respiratory failure with hypoxia and hypercapnia Hospital Course: Mela Villavicencio is an 82 year old female with PMH COPD, HTN, HLD, AFib, CHF, DARLING on nocturnal oxygen, obesity, who presented with shortness of breath and was a dmitted with acute on chronic respiratory failure with hypoxia and hypercapnia. She was admitted to the ICU on BiPAP. She was treated for COPD exacerbation with steroids and breathing treatments. Her ABG improved and she was able to come off BiPAP. She continued to require supplemental oxygen. She was needing 3 L continuously and 6 L with activity. She was set up with home BiPAP to be worn while sleeping at night or naps. She had a CT which showed a thyroid nodule which will need follow up with ultrasound. There was also concern for possible cirrhosis on imaging. She should follow up with Dr. Stockton in about a week. She was discharged home in stable condition. Labs and Pending Lab Test: Laboratory Tests 01/31/23 17:50: Urine Color YELLOW, Urine Clarity CLEAR, Urine pH 6.0, Urine Specific [place] 1.020, Urine Protein NEGATIVE, Urine Glucose (UA) NEGATIVE, Urine Ketones NEGATIVE, Urine Nitrite NEGATIVE, Urine Bilirubin NEGATIVE, Urine Urobilinogen 2.0, Urine Leukocyte Esterase TRACEH, Urine RBC (Auto) NEGATIVE, Urine RBC NONE, Urine WBC 10-25H, Urine Squamous Epithelial Cells 2-5, Urine Crystals PRESENTH, Urine Amorphous Sediment RARE TEGAN URATESH, Urine Bacteria TRACE, Urine Casts PRESENT, Urine Hyaline Casts 5-10H, Urine Mucus SMALLH, Urine Other TRANS EPI 0- 2, Urine Culture Indicated YES 02/01/23 05:05: White Blood Count 9.2, Red Blood Count 3.22L, Hemoglobin 10.0L, Hematocrit 33L, Mean Corpuscular Volume 101H, Mean Corpuscular Hemoglobin 31, Mean Corpuscular Hemoglobin Concent 31L, Red Cell Distribution Width 15.0H, Platelet Count 303, Mean Platelet Volume 9.5, Immature Granulocyte % (Auto) 1, Neutrophils (%) (Auto) 83H, Lymphocytes (%) (Auto) 9L, Monocytes (%) (Auto) 7, Eosinophils (%) (Auto) 0, Basophils (%) (Auto) 0, Neutrophils # (Auto) 7.6, Lymphocytes # (Auto) 0.8L, Monocytes # (Auto) 0.7, Eosinophils # (Auto) 0.0, Basophils # (Auto) 0.0, Immature Granulocyte # (Auto) 0.1, Sodium Level 145, Potassium Level 4.4, Chloride Level 101, Carbon Dioxide Level 37H, Anion Gap 7, Blood Urea Nitrogen 19H, Creatinine 0.86, Estimat Glomerular Filtration Rate 67, BUN/Creatinine Ratio 22, Glucose Level 111H, Calcium Level 8.9, Magnesium Level 1.9 02/01/23 12:56: Glucometer 122H 02/01/23 12:59: Blood Gas Puncture Site RIGHT RADIAL, Blood Gas Patient Temperature 37.0, Arterial Blood pH 7.38, Arterial Blood Partial Pressure CO2 67H, Arterial Blood Partial Pressure O2 96H, Arterial Blood HCO3 39H, Arterial Blood Total CO2 41.0*H, Arterial Blood Oxygen Saturation 99, Arterial Blood Base Excess 13.3H, Pedro Test NA, Blood Gas Ventilator Setting NO, Blood Gas Inspired Oxygen 40% 02/01/23 13:18: Lactic Acid Level 1.06 Microbiology 01/30/23 MRSA Screen - Final, Complete MRSA not isolated 01/30/23 Blood Culture - Preliminary, Resulted Gram Positive Cocci in Cluster Home Meds Active Prednisone 10 Mg Tab.ds.pk 10 Mg PO DAILY Take 6 tabs(60mg)daily,decrease by 1 tab(10mg)every other day. Reported Formula ( Vit W-Ca,Fe,FA(<1 mg)) 28 Mg Iron-800 Mcg Tablet 1 Each PO HS Benadryl Allergy (Diphenhydramine HCl) 25 Mg Tablet 25 Mg PO Q8H PRN Eye Multivitamin Tablet (Vit A/Vit C/Vit E/Zinc/Copper) 2,148-113 Tablet 1 Each PO DAILY Coq-10 (Ubidecarenone) 100 Mg Capsule 100 Mg PO DAILY Vitamin C with Yolande Hips (Ascorbic Acid) 500 Mg Tablet 500 Mg PO DAILY Stool Softener (Docusate Sodium) 100 Mg Capsule 100 Mg PO BID Tylenol Extra Strength (Acetaminophen) 500 Mg Tablet 500-1,000 Mg PO Q8H PRN Xarelto (Rivaroxaban) 20 Mg Tablet 20 Mg PO 1200 Verapamil ER (Verapamil HCl) 120 Mg Tablet.er 120 Mg PO BID Amiodarone HCl 200 Mg Tablet 200 Mg PO BID Tramadol HCl 50 Mg Tablet 50-100 Mg PO Q6H PRN TAKES 1 TO 2 (50MG)TABS K-Tab ER (Potassium Chloride) 10 Meq Tablet.er 10 Meq PO DAILY Amox Tr-K Clv 500-125 mg Tab (Amoxicillin/Potassium Clav) 500 Mg-125 Mg Tablet 1 Ea PO BID FILLED 01-26-2023 #14/7 DAY SUPPLY Metoprolol Succinate 50 Mg Tab.er.24h 50 Mg PO 1200 Timolol Maleate 0.5% (Timolol Maleate) 0.5 % Drops 1 Drop OU BID Furosemide 40 Mg Tablet 40 Mg PO BID Patient Allergies: Coded Allergies: NKANo Known Allergies (Verified Allergy, Unknown, 12/01/22) Home Health Need/Face to Face Date of Face to Face: Feb 01, 2023 Clinical Findings: Generalized weakness and fatigue, Muscle weakness I have seen Pt [id number]: Yes Discharged To: Home Diagnosis/Conditions: Respiratory failure COPD HTN HLD AFib Obesity Debility Problems/Diagnosis/Condition: (1) Acute on chronic respiratory failure with hypoxia and hypercapnia (2) COPD exacerbation (3) HTN (hypertension) (4) HLD (hyperlipidemia) (5) PAF (paroxysmal atrial fibrillation) (6) Obesity Patient is Homebound due to: [place] fall risk due to instabilty, Muscle weakness Homebound Status Due to the above stated illness, injury or surgical procedure (medical condition or diagnosis) and associated clinical findings, the patient is homebound because of his/her inability to leave home except with aid of a supportive device and/or person AND leaving the home requires a considerable and taxing effort or is medically contraindicated. Pt req the following assistanc: Aid of another person Home Health Nursing Orders Home Health Services Order: Nursing Services, Director-Evaluate & Treat, Physical Therapy-Evaluate & Treat Home Health Infusion Therapy Line Start Date: Jan 30, 2023 Therapy Orders Therapy Orders: OT (must have SN or PT order), Physical Therapy Therapy Specific Orders: Eval assistive deivces, Teach enviro modifications/safety, Gait training, Increase strength/endurance Certify Stmt I certify that this patient is under my care and that I, a nurse practitioner or a physician; a social media assistant working with me, had a face to face encounter that - meets the physician face to face encounter requirements with this patient as dated. Discharge Physical Exam General: Alert, No Acute Distress HEENT: Atraumatic, Mucous Memb Moist/[employer] Lungs: Clear to Auscultation, Normal Air Movement Heart: Regular Rate, No Murmurs Abdomen: Soft, No Tenderness Skin: No Rashes, No Significant Lesion Neuro: Normal Speech BUNNY SMITH MD Feb 01, 2023 14:34
== END 2023-02-01 16:35 | disposition home health service (06) | DRG 189 ==
LOC: EDUNIT# 13:43 → ER FS 13:44 → ICU 16:15 → 4TH 01-31 16:05
PROVIDERS: ADMIT Internal Medicine; ATTEND Internal Medicine
PROC: 5A09357 Assistance with Respiratory Ventilation, Less than 24 Consecutive Hours, Continuous Positive Airway Pressure (ICD-10-PCS; principal; 2023-01-30)
DX: J96.22 Acute and chronic respiratory failure with hypercapnia (principal); J44.1 Chronic obstructive pulmonary disease with (acute) exacerbation; J96.21 Acute and chronic respiratory failure with hypoxia; Z99.81 Dependence on supplemental oxygen; I48.91 Unspecified atrial fibrillation; I11.0 Hypertensive heart disease with heart failure; E78.00 Pure hypercholesterolemia, unspecified; G47.33 Obstructive sleep apnea (adult) (pediatric); E66.01 Morbid (severe) obesity due to excess calories; Z68.32 Body mass index [BMI] 32.0-32.9, adult; R53.81 Other malaise; E04.1 Nontoxic single thyroid nodule; M19.90 Unspecified osteoarthritis, unspecified site; H54.3 Unqualified visual loss, both eyes; H91.90 Unspecified hearing loss, unspecified ear; Z85.3 Personal history of malignant neoplasm of breast; Z85.42 Personal history of malignant neoplasm of other parts of uterus; Z85.820 Personal history of malignant melanoma of skin; Z79.899 Other long term (current) drug therapy; Z79.891 Long term (current) use of opiate analgesic
CPT/HCPCS: 36415; 36600; 71045; 71275; 80048; 80053; 81000; 82805; 82947; 83605; 83735; 83880; 84484; 85025; 85610; 85730; 87040; 87077; 87081; 87088; 87186; 93005; 93041; 94640; 94660; 94760; 94761

== ENCOUNTER → 2023-02-15 | Outpatient (CLI) | payer MEDICARE ==
[~2023-02-15] MED LIST changes: +ACET-2267 PO; +AMOX1TAB11 PO; +ASCO500T75 PO; +DIPH25TA65 PO; +DOCU-26 PO; +POTA-185 PO; +PRED10TA22 PO; +PREN-8 PO; +TRAM50TA3 PO; +VIT-31 PO
--- NOTE | 2023-02-15 13:35 | Diagnostic Imaging Report ---
PROCEDURE: US Thyroid. TECHNIQUE: Multiple real-time grayscale images were obtained of the thyroid in various projections. INDICATION: Thyroid nodule seen on CT. Further characterization. COMPARISON: CT chest on 02/01/2023. FINDINGS: Both thyroid lobes demonstrate a heterogeneous background echotexture. Color flow Doppler demonstrates normal and symmetric vascularity bilaterally. The right lobe measures 5.6 cm in length, 3.7 cm AP, and 3.0 cm transverse. The left lobe measures 4.5 cm in length, 2.1 cm AP, and 1.6 cm transverse. The isthmus measures 0.9 cm. A solid slightly hypoechoic nodule is seen in the right lobe of the thyroid measuring 3.2 x 2.1 x 2.5 cm. A mixed part-solid part-cystic nodule is seen in the mid left lobe of the thyroid measuring 1.3 x 0.7 x 0.9 cm. Calcifications are seen within this nodule. Additional smaller nodules are seen in both lobes of the thyroid. IMPRESSION: 1. Multinodular goiter. The largest nodule in the right lobe of the thyroid would correspond with a TI-RADS 3 nodule. Based on size criteria, further characterization with thyroid FNA should be considered. Dictated by: Dictated on workstation # [id number]
== END ==
LOC: RAD 07:46
PROVIDERS: ATTEND Internal Medicine
DX: E04.2 Nontoxic multinodular goiter (principal)
CPT/HCPCS: 76536